=== PATIENT | female | born 1950 | race Caucasian/White ===

== ENCOUNTER 2016-07-29 11:20 | Emergency (ER) | payer MEDICARE, OTHER ==
[~2016-07-29 11:20] MED LIST: ACET50TAOT PO; ALEV220T22 PO; ALLE25CA OR; AMIT10TA2 OR; ANAF25CA PO; ANAFRANIL OR; CALC600T57 PO; CO Q-10 OR; COLA100C PO; DHEA OR; ESTRACE CREAM TOP; ESTRACE PV; FISH100049 PO; FISHCAP OR; FLAG500T PO; KELP150T PO; KLON OR; KLON0.5T OR; LEVA500T PO; LIPI10TA PO; LUNE3TAB48 PO; MAGN400T5 PO; MAGN500T2 OR; MIRA33504 PO; MULTIVIT OR; MYLI40DR PO; NEUR100C OR; NEUR300C PO; OMEP40CA2 PO; RELP40TA PO; REST0.05 OU; RESTASIS OU; TRAM50TA2 PO; TREXIMET OR; VITA200038 PO; VITMTA PO; VIVE0.03 TD; VIVELLE DOT TOP
[2016-07-29] MEDS ORDERED: PERCOCET 5MG/325MG TAB As Ordered ONE (12:32)
[2016-07-29] MEDS ORDERED: hydroCHLOROthiazide 25 MG TAB As Ordered ONE (14:06)
--- NOTE | 2016-07-29 14:15 | EDDOCDS ---
Nurse's Notes [facility] Name: Henrietta Tobias Age: 66 yrs Sex: Female : 1950 Arrival Date: 07/29/2016 Time: 11:20 Bed PR Private MD: Malka Rhodes A Diagnosis: Low back pain;Essential (primary) hypertension Presentation: 07/29 11:28 Presenting complaint: Patient states: Scheduled for laminectomy in August. Has been [facility] on Tramadol and Tylenol which is not helping with pain. Told by MD to come to ED to get some pain control and has appointment tomorrow. Adult Sepsis Screening: The patient does not have new or worsening altered mentation. Patient's respiratory rate is less than 22. Systolic blood pressure is greater than 100. Patient has a qSOFA score of 0- Negative Sepsis Screen. Suicide/Homicide risk assessment- the patient denies having any suicidal and/or homicidal ideations and does not present with any other emotional, behavioral or mental health complaints. Status: Patient is not a guest services attendant or dependent. Transition of care: patient was not received from another setting of care. 11:28 Acuity: ROSSI Level 4 [facility] 11:28 Method Of Arrival: Wheelchair [facility] Triage Assessment: 11:32 General: Appears uncomfortable, Behavior is cooperative. Pain: Location: right mcp buttocks, right calf down to right foot Pain currently is 10 out of 10 on a pain scale. Neurological: No deficits noted. Respiratory: Airway is patent Respiratory effort is even, unlabored. Derm: Skin is pink, warm & dry. Musculoskeletal: Circulation, motion, and sensation intact. Historical: - Allergies: Bactrim (Hives); Contrast dye (Hives); Lidoderm (red bumps and bruises); Propranolol (Psoriasis); Voltaren (feet swell); - Home Meds: 1. calcium 600 & D 200 x2 daily 2. Fish Oil 4000 mg daily Oral 3. Kelp 225 mcg daily oral 4. Lipitor 10 mg Oral tab 1 tab once daily 5. Lunesta 3 mg Oral tab 1 tab once daily as needed 6. magnesium oxide 400 mg Oral tab 3 daily 7. Multivitamin Oral 1 tab daily 8. Neurontin 300 mg Oral cap 3-4 times per day 9. omeprazole 40 mg Oral cpDR 1 cap once daily 10. Relpax 40 mg oral tab 1 tab as needed as needed 11. restasis 0.08% ooone drop each eye twice daily 12. Vitamin D3 2,000 unit oral tab daily 13. tramadol 50 mg Oral tab 1 tab every 4-6 hours 14. Tylenol 325 mg Oral tab 1 tab every 4-6 hours - PMHx: Hypercholesterolemia; Migraine Headaches; GERD; dry eyes; Chronic Back pain; - PSHx: open heart surgery; Bunion Surgery; left leg surgery; suregry for migraines; Hysterectomy; Tubal ligation; Breast Reduction; - Social history: Smoking status: Patient states was never smoker of tobacco. No barriers to communication noted, The patient speaks fluent Polish. - Family history: Not pertinent. - : The pt / caregiver states he / she is not on anticoagulants. Home medication list is obtained from the patient. - Exposure Risk Screening:: None identified. Screenin:42 Screening information is obtained from the patient. Fall risk: No risks identified. mcp Assistance ADL's: requires no assistance with activities of daily living. Abuse/DV Screen: The patient / caregiver reports he/she is: not in a situation that causes fear, pain or injury. Nutritional screening: No deficits noted. Advance Directives: There is no active DNR order. home support is adequate. Assessment: 12:41 General: Appears uncomfortable, Behavior is cooperative. Pain: Location: right mcp buttocks, right calf down to right foot Pain currently is 9 out of 10 on a pain scale. Neurological: No deficits noted. Respiratory: Airway is patent Respiratory effort is even, unlabored. Derm: Skin is pink, warm & dry. Musculoskeletal: Circulation, motion, and sensation intact. 14:12 General: Appears in no apparent distress, comfortable, Behavior is cooperative. Pain:. mcp Neurological: No deficits noted. Respiratory: Airway is patent Respiratory effort is even, unlabored. Derm: Skin is pink, warm & dry. Musculoskeletal: Circulation, motion, and sensation intact. Vital Signs: 11:22 BP 185 / 89; Pulse 86; Resp 18; Temp 97.4(O); Pulse Ox 100% on R/A; Weight 61.23 kg elp (R); Height 5 ft. 2 in. (157.48 cm) (R); Pain 10/10; 13:28 Pain 2/10; mcp 13:33 BP 181 / 87; Pulse 70; Resp 18; Temp 96.9(T); Pulse Ox 96% on R/A; Pain 2/10; mcp 13:35 BP 181 / 92 LA Supine (man/); ar3 14:05 BP 179 / 89 Supine (man/); Pulse 67; Resp 16; Temp 97.3(T); Pulse Ox 96% on R/A; Pain ar3 4/10; 11:22 Body Mass Index 24.69 (61.23 kg, 157.48 cm) el Vitals: 11:22 Log In Time: July 29, 2016 at 11:20. [facility] ED Course: 11:22 Patient visited by Fang Carter PCA. elp 11:22 Malka Rhodes is Private Physician. elp 11:22 Patient moved to Waiting elp 11:23 Patient visited by Fang Carter PCA. elp 11:23 Patient moved to Pre RCE elp 11:29 Triage Initiated mcp 11:33 Patient visited by Cristiane Carbajal RN. [facility] 11:33 Patient moved to Triage 1 mcp 11:48 [facility] jk8 11:48 Pradip Yousif MD is Attending Physician. jk8 11:48 Patient visited by Chilango Monson PA-C. jk8 12:13 [facility] Payment Agreement was scanned into [employer] and attached to record. mm15 12:32 Patient moved to PR2 / 26 ar3 12:42 Patient visited by Cristiane Carbajal RN. mcp 12:42 The patient / caregiver is instructed regarding the plan of care and ED course. Patient mcp has correct armband on for positive identification. Bed in low position. Call light in reach. Adult w/ patient. 13:34 Patient visited by Cristiane Carbajal RN. mcp 13:36 Patient visited by Britta Griffith PCA. ar3 14:00 Jr Catalan is Referral Physician. jk8 14:06 Patient visited by Britta Griffith PCA. ar3 14:13 No IV's were initiated during this patient's visit. No procedures done that require mcp assistance. Administered Medications: 12:40 Drug: oxyCODONE-acetaminophen 2 tabs [oxycodone-acetaminophen 5 mg-325 mg tablet (2 mcp tabs)] Route: PO; 13:28 Follow up: Pain 2/10 Adult; Response: Pain is decreased [facility] 14:12 Drug: Hydrochlorothiazide 25 mg [hydrochlorothiazide 25 mg tablet (1 tabs)] Route: PO; [facility] Order Results: There are currently no results for this order. Outcome: 14:01 Discharge ordered by Provider. jk8 14:14 Discharge Assessment: patient administered narcotics - yes. Pt provided with safe [facility] discharge. The following High Risk Discharge criteria are identified: None. Discharged to home ambulatory, with significant other. Condition: stable. Discharge instructions given to patient, Instructed on discharge instructions, follow up and referral plans. medication usage, Demonstrated understanding of instructions, medications, Pt was receptive of discharge instructions/ teaching. Prescriptions given X 2. No special radiology studies were completed. Property sent home with patient. 14:14 Patient left the ED. [facility] Signatures: Cristiane Carbajal RN RN Britta Harley, SILICATOR SILICATOR ar3 Shanae Diaz mm15 Fang Carter, SILICATOR SILICATOR elp Chilango Monson PA-C PA-C jk8 MP
--- NOTE | 2016-07-29 14:15 | EDDOCDS ---
Physician Documentation [facility] Name: Henrietta Tobias Age: 66 yrs Sex: Female : 1950 Arrival Date: 07/29/2016 Time: 11:20 Bed PR Private MD: Malka Rhodes A Disposition: 07/29/16 14:01 Discharged to Home/Self Care. Impression: Low back pain, Essential (primary) hypertension. - Condition is Stable. - Prescriptions for Percocet 5- 325 mg Oral Tablet - take 1 tablet by ORAL route every 6 hours As needed MDD: 4 tabs; 20 tablet. Hydrochlorothiazide 25 mg Oral Tablet - take 1 tablet by ORAL route once daily .; 30 tablet. - Medication Reconciliation, Local Pharmacy Hours form. - Follow up: Emergency Department; When: As soon as possible; Reason: Worsening of conditions. Follow up: Jr Catalan; When: Today; Reason: as scheduled. Follow up: Private Physician; When: 4 - 5 days; Reason: Further diagnostic work-up, Recheck today's complaints. - Problem is chronic. - Symptoms have worsened. Historical: - Allergies: Bactrim (Hives); Contrast dye (Hives); Lidoderm (red bumps and bruises); Propranolol (Psoriasis); Voltaren (feet swell); - Home Meds: 1. calcium 600 & D 200 x2 daily 2. Fish Oil 4000 mg daily Oral 3. Kelp 225 mcg daily oral 4. Lipitor 10 mg Oral tab 1 tab once daily 5. Lunesta 3 mg Oral tab 1 tab once daily as needed 6. magnesium oxide 400 mg Oral tab 3 daily 7. Multivitamin Oral 1 tab daily 8. Neurontin 300 mg Oral cap 3-4 times per day 9. omeprazole 40 mg Oral cpDR 1 cap once daily 10. Relpax 40 mg oral tab 1 tab as needed as needed 11. restasis 0.08% ooone drop each eye twice daily 12. Vitamin D3 2,000 unit oral tab daily 13. tramadol 50 mg Oral tab 1 tab every 4-6 hours 14. Tylenol 325 mg Oral tab 1 tab every 4-6 hours - PMHx: Hypercholesterolemia; Migraine Headaches; GERD; dry eyes; Chronic Back pain; - PSHx: open heart surgery; Bunion Surgery; left leg surgery; suregry for migraines; Hysterectomy; Tubal ligation; Breast Reduction; - Social history: Smoking status: Patient states was never smoker of tobacco. No barriers to communication noted, The patient speaks fluent Italian. - Family history: Not pertinent. - : The pt / caregiver states he / she is not on anticoagulants. Home medication list is obtained from the patient. - Exposure Risk Screening:: None identified. Vital Signs: 07/29 11:22 BP 185 / 89; Pulse 86; Resp 18; Temp 97.4(O); Pulse Ox 100% on R/A; Weight 61.23 kg / elp 134.99 lbs (R); Height 5 ft. 2 in. (157.48 cm) (R); Pain 10/10; 13:28 Pain 2/10; mcp 13:33 BP 181 / 87; Pulse 70; Resp 18; Temp 96.9(T); Pulse Ox 96% on R/A; Pain 2/10; mcp 13:35 BP 181 / 92 LA Supine (man/); ar3 14:05 BP 179 / 89 Supine (man/); Pulse 67; Resp 16; Temp 97.3(T); Pulse Ox 96% on R/A; Pain ar3 4/10; 11:22 Body Mass Index 24.69 (61.23 kg, 157.48 cm) elp MDM: 12:04 Financial registration complete. mm15 12:13 [facility] Payment Agreement was scanned into [employer] and attached to record. mm15 12:30 oxyCODONE-acetaminophen 5 mg-325 mg 2 tabs PO once ordered. jk8 14:02 Hydrochlorothiazide 25 mg PO once ordered. jk8 Administered Medications: 12:40 Drug: oxyCODONE-acetaminophen 2 tabs [oxycodone-acetaminophen 5 mg-325 mg tablet (2 mcp tabs)] Route: PO; 13:28 Follow up: Pain 2/10 Adult; Response: Pain is decreased mcp 14:12 Drug: Hydrochlorothiazide 25 mg [hydrochlorothiazide 25 mg tablet (1 tabs)] Route: PO; mcp Signatures: Cirstiane Carbajal RN RN Shanae Nascimento mm15 Chilango Monson PA-C PA-C jk8 The chart was reviewed and I authenticate all verbal orders and agree with the evaluation and treatment provided.Attachments: 12:13 [facility] Payment Agreement mm15 MTDD
--- NOTE | 2016-07-31 15:15 | EDDOCDS ---
Nurse's Notes [facility] Name: Henrietta Tobias Age: 66 yrs Sex: Female : 1950 Arrival Date: 07/29/2016 Time: 11:20 Bed PR Private MD: Malka Rhodes A Diagnosis: Low back pain;Essential (primary) hypertension Presentation: 07/29 11:28 Presenting complaint: Patient states: Scheduled for laminectomy in August. Has been [facility] on Tramadol and Tylenol which is not helping with pain. Told by MD to come to ED to get some pain control and has appointment tomorrow. Adult Sepsis Screening: The patient does not have new or worsening altered mentation. Patient's respiratory rate is less than 22. Systolic blood pressure is greater than 100. Patient has a qSOFA score of 0- Negative Sepsis Screen. Suicide/Homicide risk assessment- the patient denies having any suicidal and/or homicidal ideations and does not present with any other emotional, behavioral or mental health complaints. 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 Transition of care: patient was not received from another setting of care. 11:28 Acuity: ROSSI Level 4 [facility] 11:28 Method Of Arrival: Wheelchair [facility] Triage Assessment: 11:32 General: Appears uncomfortable, Behavior is cooperative. Pain: Location: right mcp buttocks, right calf down to right foot Pain currently is 10 out of 10 on a pain scale. Neurological: No deficits noted. Respiratory: Airway is patent Respiratory effort is even, unlabored. Derm: Skin is pink, warm & dry. Musculoskeletal: Circulation, motion, and sensation intact. Historical: - Allergies: Bactrim (Hives); Contrast dye (Hives); Lidoderm (red bumps and bruises); Propranolol (Psoriasis); Voltaren (feet swell); - Home Meds: 1. calcium 600 & D 200 x2 daily 2. Fish Oil 4000 mg daily Oral 3. Kelp 225 mcg daily oral 4. Lipitor 10 mg Oral tab 1 tab once daily 5. Lunesta 3 mg Oral tab 1 tab once daily as needed 6. magnesium oxide 400 mg Oral tab 3 daily 7. Multivitamin Oral 1 tab daily 8. Neurontin 300 mg Oral cap 3-4 times per day 9. omeprazole 40 mg Oral cpDR 1 cap once daily 10. Relpax 40 mg oral tab 1 tab as needed as needed 11. restasis 0.08% ooone drop each eye twice daily 12. Vitamin D3 2,000 unit oral tab daily 13. tramadol 50 mg Oral tab 1 tab every 4-6 hours 14. Tylenol 325 mg Oral tab 1 tab every 4-6 hours - PMHx: Hypercholesterolemia; Migraine Headaches; GERD; dry eyes; Chronic Back pain; - PSHx: open heart surgery; Bunion Surgery; left leg surgery; suregry for migraines; Hysterectomy; Tubal ligation; Breast Reduction; - Social history: Smoking status: Patient states was never smoker of tobacco. No barriers to communication noted, The patient speaks fluent Indonesian. - Family history: Not pertinent. - : The pt / caregiver states he / she is not on anticoagulants. Home medication list is obtained from the patient. - Exposure Risk Screening:: None identified. Screenin:42 Screening information is obtained from the patient. Fall risk: No risks identified. mcp Assistance ADL's: requires no assistance with activities of daily living. Abuse/DV Screen: The patient / caregiver reports he/she is: not in a situation that causes fear, pain or injury. Nutritional screening: No deficits noted. Advance Directives: There is no active DNR order. home support is adequate. Assessment: 12:41 General: Appears uncomfortable, Behavior is cooperative. Pain: Location: right mcp buttocks, right calf down to right foot Pain currently is 9 out of 10 on a pain scale. Neurological: No deficits noted. Respiratory: Airway is patent Respiratory effort is even, unlabored. Derm: Skin is pink, warm & dry. Musculoskeletal: Circulation, motion, and sensation intact. 14:12 General: Appears in no apparent distress, comfortable, Behavior is cooperative. Pain:. mcp Neurological: No deficits noted. Respiratory: Airway is patent Respiratory effort is even, unlabored. Derm: Skin is pink, warm & dry. Musculoskeletal: Circulation, motion, and sensation intact. Vital Signs: 11:22 BP 185 / 89; Pulse 86; Resp 18; Temp 97.4(O); Pulse Ox 100% on R/A; Weight 61.23 kg elp (R); Height 5 ft. 2 in. (157.48 cm) (R); Pain 10/10; 13:28 Pain 2/10; mcp 13:33 BP 181 / 87; Pulse 70; Resp 18; Temp 96.9(T); Pulse Ox 96% on R/A; Pain 2/10; mcp 13:35 BP 181 / 92 LA Supine (man/); ar3 14:05 BP 179 / 89 Supine (man/); Pulse 67; Resp 16; Temp 97.3(T); Pulse Ox 96% on R/A; Pain ar3 4/10; 11:22 Body Mass Index 24.69 (61.23 kg, 157.48 cm) el Vitals: 11:22 Log In Time: July 29, 2016 at 11:20. [facility] ED Course: 11:22 Patient visited by Fang Carter PCA. elp 11:22 Malka Rhodes is Private Physician. elp 11:22 Patient moved to Waiting elp 11:23 Patient visited by Fang Carter PCA. elp 11:23 Patient moved to Pre RCE elp 11:29 Triage Initiated mcp 11:33 Patient visited by Cristiane Carbajal RN. [facility] 11:33 Patient moved to Triage 1 mcp 11:48 [facility]il[facility] Monson [facility] jk8 11:48 Pradip Yousif MD is Attending Physician. jk8 11:48 Patient visited by Chilango Monson PA-C. jk8 12:13 [facility] Payment Agreement was scanned into [employer] and attached to record. mm15 12:32 Patient moved to PR2 / 26 ar3 12:42 Patient visited by Cristiane Carbajal RN. mcp 12:42 The patient / caregiver is instructed regarding the plan of care and ED course. Patient mcp has correct armband on for positive identification. Bed in low position. Call light in reach. Adult w/ patient. 13:34 Patient visited by Cristiane Carbajal RN. mcp 13:36 Patient visited by Britta Griffith PCA. ar3 14:00 Jr Catalan is Referral Physician. jk8 14:06 Patient visited by Britta Griffith PCA. ar3 14:13 No IV's were initiated during this patient's visit. No procedures done that require mcp assistance. 21:57 T-Sheet-- Draft Copy was scanned into [employer] and attached to record. klr Administered Medications: 12:40 Drug: oxyCODONE-acetaminophen 2 tabs [oxycodone-acetaminophen 5 mg-325 mg tablet (2 mcp tabs)] Route: PO; 13:28 Follow up: Pain 2/10 Adult; Response: Pain is decreased [facility] 14:12 Drug: Hydrochlorothiazide 25 mg [hydrochlorothiazide 25 mg tablet (1 tabs)] Route: PO; [facility] Order Results: There are currently no results for this order. Outcome: 14:01 Discharge ordered by Provider. jk8 14:14 Discharge Assessment: patient administered narcotics - yes. Pt provided with safe [facility] discharge. The following High Risk Discharge criteria are identified: None. Discharged to home ambulatory, with significant other. Condition: stable. Discharge instructions given to patient, Instructed on discharge instructions, follow up and referral plans. medication usage, Demonstrated understanding of instructions, medications, Pt was receptive of discharge instructions/ teaching. Prescriptions given X 2. No special radiology studies were completed. Property sent home with patient. 14:14 Patient left the ED. [facility] Signatures: Cristiane Carbajal RN RN [facility] Britta Griffith, PROFESSOR OF RADIOLOGY PROFESSOR OF RADIOLOGY ar3 Shanae Diaz mm15 Fang Carter, PROFESSOR OF RADIOLOGY PROFESSOR OF RADIOLOGY elp Chilango Monson PA-C PA-C jk8 Lata Hunt Chart Complete MTDSherlyn
--- NOTE | 2016-07-31 15:15 | EDDOCDS ---
Physician Documentation [facility] Name: Henrietta Tobias Age: 66 yrs Sex: Female : 1950 Arrival Date: 07/29/2016 Time: 11:20 Bed PR Private MD: Malka Rhodes A Disposition: 07/29/16 14:01 Discharged to Home/Self Care. Impression: Low back pain, Essential (primary) hypertension. - Condition is Stable. - Prescriptions for Percocet 5- 325 mg Oral Tablet - take 1 tablet by ORAL route every 6 hours As needed MDD: 4 tabs; 20 tablet. Hydrochlorothiazide 25 mg Oral Tablet - take 1 tablet by ORAL route once daily .; 30 tablet. - Medication Reconciliation, Local Pharmacy Hours form. - Follow up: Emergency Department; When: As soon as possible; Reason: Worsening of conditions. Follow up: Jr Catalan; When: Today; Reason: as scheduled. Follow up: Private Physician; When: 4 - 5 days; Reason: Further diagnostic work-up, Recheck today's complaints. - Problem is chronic. - Symptoms have worsened. Historical: - Allergies: Bactrim (Hives); Contrast dye (Hives); Lidoderm (red bumps and bruises); Propranolol (Psoriasis); Voltaren (feet swell); - Home Meds: 1. calcium 600 & D 200 x2 daily 2. Fish Oil 4000 mg daily Oral 3. Kelp 225 mcg daily oral 4. Lipitor 10 mg Oral tab 1 tab once daily 5. Lunesta 3 mg Oral tab 1 tab once daily as needed 6. magnesium oxide 400 mg Oral tab 3 daily 7. Multivitamin Oral 1 tab daily 8. Neurontin 300 mg Oral cap 3-4 times per day 9. omeprazole 40 mg Oral cpDR 1 cap once daily 10. Relpax 40 mg oral tab 1 tab as needed as needed 11. restasis 0.08% ooone drop each eye twice daily 12. Vitamin D3 2,000 unit oral tab daily 13. tramadol 50 mg Oral tab 1 tab every 4-6 hours 14. Tylenol 325 mg Oral tab 1 tab every 4-6 hours - PMHx: Hypercholesterolemia; Migraine Headaches; GERD; dry eyes; Chronic Back pain; - PSHx: open heart surgery; Bunion Surgery; left leg surgery; suregry for migraines; Hysterectomy; Tubal ligation; Breast Reduction; - Social history: Smoking status: Patient states was never smoker of tobacco. No barriers to communication noted, The patient speaks fluent German. - Family history: Not pertinent. - : The pt / caregiver states he / she is not on anticoagulants. Home medication list is obtained from the patient. - Exposure Risk Screening:: None identified. Vital Signs: 07/29 11:22 BP 185 / 89; Pulse 86; Resp 18; Temp 97.4(O); Pulse Ox 100% on R/A; Weight 61.23 kg / elp 134.99 lbs (R); Height 5 ft. 2 in. (157.48 cm) (R); Pain 10/10; 13:28 Pain 2/10; mcp 13:33 BP 181 / 87; Pulse 70; Resp 18; Temp 96.9(T); Pulse Ox 96% on R/A; Pain 2/10; mcp 13:35 BP 181 / 92 LA Supine (man/); ar3 14:05 BP 179 / 89 Supine (man/); Pulse 67; Resp 16; Temp 97.3(T); Pulse Ox 96% on R/A; Pain ar3 4/10; 11:22 Body Mass Index 24.69 (61.23 kg, 157.48 cm) elp MDM: 12:04 Financial registration complete. mm15 12:13 [facility] Payment Agreement was scanned into [employer] and attached to record. mm15 12:30 oxyCODONE-acetaminophen 5 mg-325 mg 2 tabs PO once ordered. jk8 14:02 Hydrochlorothiazide 25 mg PO once ordered. jk8 21:57 T-Sheet-- Draft Copy was scanned into [employer] and attached to record. klr Administered Medications: 12:40 Drug: oxyCODONE-acetaminophen 2 tabs [oxycodone-acetaminophen 5 mg-325 mg tablet (2 mcp tabs)] Route: PO; 13:28 Follow up: Pain 2/10 Adult; Response: Pain is decreased mcp 14:12 Drug: Hydrochlorothiazide 25 mg [hydrochlorothiazide 25 mg tablet (1 tabs)] Route: PO; [facility] Signatures: Cristiane Carbajal RN RN mcp McGrath, Marlynn mm15 Chilango Monson PA-C PA-C jk8 Lata Hunt The chart was reviewed and I authenticate all verbal orders and agree with the evaluation and treatment provided.Attachments: 12:13 [facility] Payment Agreement mm15 21:57 T-Sheet-- Draft Copy kelir Chart Complete MTDD
--- NOTE | 2016-07-31 15:15 | EDDOCDS ---
Physician Documentation [facility] Name: Henrietta Tobias Age: 66 yrs Sex: Female : 1950 Arrival Date: 07/29/2016 Time: 11:20 Bed PR Private MD: Malka Rhodes A Disposition: 07/29/16 14:01 Discharged to Home/Self Care. Impression: Low back pain, Essential (primary) hypertension. - Condition is Stable. - Prescriptions for Percocet 5- 325 mg Oral Tablet - take 1 tablet by ORAL route every 6 hours As needed MDD: 4 tabs; 20 tablet. Hydrochlorothiazide 25 mg Oral Tablet - take 1 tablet by ORAL route once daily .; 30 tablet. - Medication Reconciliation, Local Pharmacy Hours form. - Follow up: Emergency Department; When: As soon as possible; Reason: Worsening of conditions. Follow up: Jr Catalan; When: Today; Reason: as scheduled. Follow up: Private Physician; When: 4 - 5 days; Reason: Further diagnostic work-up, Recheck today's complaints. - Problem is chronic. - Symptoms have worsened. Historical: - Allergies: Bactrim (Hives); Contrast dye (Hives); Lidoderm (red bumps and bruises); Propranolol (Psoriasis); Voltaren (feet swell); - Home Meds: 1. calcium 600 & D 200 x2 daily 2. Fish Oil 4000 mg daily Oral 3. Kelp 225 mcg daily oral 4. Lipitor 10 mg Oral tab 1 tab once daily 5. Lunesta 3 mg Oral tab 1 tab once daily as needed 6. magnesium oxide 400 mg Oral tab 3 daily 7. Multivitamin Oral 1 tab daily 8. Neurontin 300 mg Oral cap 3-4 times per day 9. omeprazole 40 mg Oral cpDR 1 cap once daily 10. Relpax 40 mg oral tab 1 tab as needed as needed 11. restasis 0.08% ooone drop each eye twice daily 12. Vitamin D3 2,000 unit oral tab daily 13. tramadol 50 mg Oral tab 1 tab every 4-6 hours 14. Tylenol 325 mg Oral tab 1 tab every 4-6 hours - PMHx: Hypercholesterolemia; Migraine Headaches; GERD; dry eyes; Chronic Back pain; - PSHx: open heart surgery; Bunion Surgery; left leg surgery; suregry for migraines; Hysterectomy; Tubal ligation; Breast Reduction; - Social history: Smoking status: Patient states was never smoker of tobacco. No barriers to communication noted, The patient speaks fluent Nepali. - Family history: Not pertinent. - : The pt / caregiver states he / she is not on anticoagulants. Home medication list is obtained from the patient. - Exposure Risk Screening:: None identified. Vital Signs: 07/29 11:22 BP 185 / 89; Pulse 86; Resp 18; Temp 97.4(O); Pulse Ox 100% on R/A; Weight 61.23 kg / elp 134.99 lbs (R); Height 5 ft. 2 in. (157.48 cm) (R); Pain 10/10; 13:28 Pain 2/10; mcp 13:33 BP 181 / 87; Pulse 70; Resp 18; Temp 96.9(T); Pulse Ox 96% on R/A; Pain 2/10; mcp 13:35 BP 181 / 92 LA Supine (man/); ar3 14:05 BP 179 / 89 Supine (man/); Pulse 67; Resp 16; Temp 97.3(T); Pulse Ox 96% on R/A; Pain ar3 4/10; 11:22 Body Mass Index 24.69 (61.23 kg, 157.48 cm) elp MDM: 12:04 Financial registration complete. mm15 12:13 [facility] Payment Agreement was scanned into [employer] and attached to record. mm15 12:30 oxyCODONE-acetaminophen 5 mg-325 mg 2 tabs PO once ordered. jk8 14:02 Hydrochlorothiazide 25 mg PO once ordered. jk8 21:57 T-Sheet-- Draft Copy was scanned into [employer] and attached to record. klr Administered Medications: 12:40 Drug: oxyCODONE-acetaminophen 2 tabs [oxycodone-acetaminophen 5 mg-325 mg tablet (2 mcp tabs)] Route: PO; 13:28 Follow up: Pain 2/10 Adult; Response: Pain is decreased mcp 14:12 Drug: Hydrochlorothiazide 25 mg [hydrochlorothiazide 25 mg tablet (1 tabs)] Route: PO; [facility] Signatures: Cristiane Carbajal RN RN mcp McGrath, Marlynn mm15 Chilango Monson PA-C PA-C jk8 Lata Hunt The chart was reviewed and I authenticate all verbal orders and agree with the evaluation and treatment provided.Attachments: 12:13 [facility] Payment Agreement mm15 21:57 T-Sheet-- Draft Copy kelir Chart Complete MTDD
== END 2016-07-29 14:14 | disposition home or self-care (01) ==
LOC: M ED 11:20
DX: M54.9 Dorsalgia, unspecified (principal); E78.00 Pure hypercholesterolemia, unspecified; G43.909 Migraine, unspecified, not intractable, without status migrainosus; K21.9 Gastro-esophageal reflux disease without esophagitis; H04.129 Dry eye syndrome of unspecified lacrimal gland; Z79.899 Other long term (current) drug therapy; Z88.2 Allergy status to sulfonamides; Z91.041 Radiographic dye allergy status; Z88.8 Allergy status to other drugs, medicaments and biological substances

== ENCOUNTER → 2016-08-23 | Outpatient (REF) | payer MEDICARE, OTHER | LOC: M LAB REF 09:12 | PROVIDERS: ATTEND Physician Assistant | DX: R19.7 Diarrhea, unspecified (principal) ==

== ENCOUNTER → 2016-08-23 | Outpatient (REF) | payer MEDICARE, OTHER | LOC: M LAB REF 09:51 | PROVIDERS: ATTEND Family Medicine | DX: R19.7 Diarrhea, unspecified (principal) ==

== ENCOUNTER → 2016-09-21 | Outpatient (REF) | payer MEDICARE, OTHER ==
[2016-09-21 20:14] LABS: ALBUMIN/GLOBULIN RATIO 1.21 (1.00-1.93); BILIRUBIN,DIRECT 0.1 MG/DL (0.0-0.2); BILIRUBIN,TOTAL 0.4 MG/DL (0.2-1.0); TOTAL PROTEIN 7.3 GM/DL (6.4-8.2)
== END ==
LOC: M LABDRAW1 15:47
PROVIDERS: ATTEND Family Medicine
DX: R94.5 Abnormal results of liver function studies (principal)

== ENCOUNTER → 2016-12-20 | Outpatient (REF) | payer MEDICARE, OTHER ==
[~2016-12-20] MED LIST changes: -COLA100C PO; +COLA100C3 PO
[2016-12-20 13:01] LABS: BASO % 0.3 % (0.0-1.0); EOS # 0.2 K/mm3 (0.0-0.50); EOS % 4.7 % (0.0-3.0); LARGE UNSTAINED CELL # 0.1 K/mm3 (0.0-0.4); LARGE UNSTAINED CELL % 2.4 % (0.0-4.0); LYMPH # 2.4 K/mm3 (1.5-4.5); LYMPH % 44.2 % (24.0-44.0); MEAN CORPUSCULAR HEMOGLOBIN 27.7 pg (27.0-33.0); MEAN CORPUSCULAR HGB CONC 32.9 g/dl (32.0-36.5); MEAN CORPUSCULAR VOLUME 84.2 fl (80.0-96.0); MONO # 0.4 K/mm3 (0.0-0.8); MONO % 7.1 % (0.0-5.0); NEUTROPHILS # 2.1 K/mm3 (1.8-7.7); NEUTROPHILS % 41.3 % (36.0-66.0); PLATELET COUNT, AUTOMATED 273 k/mm3 (150-450); RED CELL DISTRIBUTION WIDTH 13.2 % (11.5-14.5); WHITE BLOOD COUNT 5.1 K/mm3 (4.0-10.0)
[2016-12-20 13:24] LABS: BILIRUBIN,TOTAL 0.4 MG/DL (0.2-1.0); CALCIUM LEVEL 10.1 MG/DL (8.8-10.2); CREATININE FOR GFR 1.2 MG/DL (0.55-1.02); GLOMERULAR FILTRATION RATE 47.8 (>45); POTASSIUM SERUM 4.4 MEQ/L (3.5-5.1)
[2016-12-20 13:25] LABS: ALBUMIN 4.2 GM/DL (3.2-5.2); ALBUMIN/GLOBULIN RATIO 1.24 (1.00-1.93); TOTAL PROTEIN 7.6 GM/DL (6.4-8.2)
== END ==
LOC: M LABDRWAD 12:19
PROVIDERS: ATTEND Family Medicine
DX: E78.2 Mixed hyperlipidemia (principal)

== ENCOUNTER → 2017-03-28 | Outpatient (REF) | payer MEDICARE, OTHER ==
[~2017-03-28] MED LIST changes: -COLA100C3 PO; +COLA100C5 PO; +LEVA1TAB2 PO; -LEVA500T PO; +LUNE3TAB36 PO; -LUNE3TAB48 PO
== END ==
LOC: M LAB REF 15:16
PROVIDERS: ATTEND Physician Assistant
DX: N39.0 Urinary tract infection, site not specified (principal)

== ENCOUNTER → 2017-06-26 | Outpatient (CLI) | payer MEDICARE, OTHER ==
--- NOTE | 2017-06-26 12:17 | REPMRS ---
Patient History The patient states she had a clinical breast exam in 06/2017. Patient is postmenopausal. Family history of prostate cancer in father at age 50 or over. Reductions of both breasts, July 2009. Took estrogen for 14 years 9 months. Digital Woman Screen Mammo: June 26, 2017 - Exam #: [id number] Bilateral CC and MLO view(s) were taken. Technologist: Mervat Gutierrez, Technologist Prior study comparison: June 25, 2016, digital woman screen mammo performed at [facility]. June 27, 2015, digital woman screen mammo performed at [facility]. FINDINGS: There are scattered fibroglandular densities. There has been no change in the appearance of the mammogram from the prior studies. There is a mild amount of residual fibroglandular tissue which is fairly symmetric. There is no interval development of dominant mass, architectural distortion, or clustered microcalcification suggestive of malignancy. ASSESSMENT: BI-RADS/ACR category 1 mammogram. Negative. Recommendation Routine screening mammogram in 1 year (for women over age 40). This mammogram was interpreted with the aid of an FDA-approved computer-aided dectection system. Electronically Signed By: Hakan Serrano MD 06/26/17 2625
== END ==
LOC: M WHC 10:07
PROVIDERS: ATTEND Nurse Practitioner Family
DX: Z12.31 Encounter for screening mammogram for malignant neoplasm of breast (principal); Z78.0 Asymptomatic menopausal state; Z92.23 Personal history of estrogen therapy; Z92.89 Personal history of other medical treatment

== ENCOUNTER → 2017-07-31 | Outpatient (REF) | payer MEDICARE, OTHER ==
[2017-07-31 12:46] LABS: BASO % 0.4 % (0.0-1.0); EOS % 0.2 % (0.0-3.0); HEMATOCRIT 45.1 % (36.0-47.0); HEMOGLOBIN 14.7 g/dl (12.0-16.0); IMMATURE GRANULOCYTE % 0.2 % (0-0); LYMPH % 38.4 % (24.0-44.0); MEAN CORPUSCULAR HEMOGLOBIN 28.4 pg (27.0-33.0); MEAN CORPUSCULAR HGB CONC 32.6 g/dl (32.0-36.5); MEAN CORPUSCULAR VOLUME 87.2 fl (80.0-96.0); MONO # 0.5 10^3/uL (0.0-0.8); MONO % 8.8 % (0.0-5.0); NEUTROPHILS # 2.7 10^3/uL (1.8-7.7); PLATELET COUNT, AUTOMATED 254 10^3/uL (150-450); RED BLOOD COUNT 5.17 10^6/uL (4.00-5.40); RED CELL DISTRIBUTION WIDTH 12.9 % (11.5-14.5); WHITE BLOOD COUNT 5.1 10^3/uL (4.0-10.0)
[2017-07-31 12:52] LABS: ALBUMIN 4.3 GM/DL (3.2-5.2); ALKALINE PHOSPHATASE 113 U/L (45-117); ALT/SGPT 46 U/L (12-78); ANION GAP 7 MEQ/L (8-16); AST/SGOT 41 U/L (7-37); BILIRUBIN,TOTAL 0.5 MG/DL (0.2-1.0); BLOOD UREA NITROGEN 20 MG/DL (7-18); CALCIUM LEVEL 9.9 MG/DL (8.8-10.2); CARBON DIOXIDE LEVEL 29 MEQ/L (21-32); CHLORIDE LEVEL 106 MEQ/L (98-107); CREATININE FOR GFR 1.16 MG/DL (0.55-1.02); GLOMERULAR FILTRATION RATE 49.6 (>45); GLUCOSE, FASTING 93 MG/DL (80-110); POTASSIUM SERUM 4.4 MEQ/L (3.5-5.1); SODIUM LEVEL 142 MEQ/L (136-145); TOTAL PROTEIN 7.6 GM/DL (6.4-8.2)
== END ==
LOC: M LABDRWAD 12:30
DX: Z01.818 Encounter for other preprocedural examination (principal); E08.35 Diabetes mellitus due to underlying condition with proliferative diabetic retinopathy
CPT/HCPCS: 80053

== ENCOUNTER 2017-08-14 07:19 | Day surgery (SDC) | payer MEDICARE, OTHER ==
[2017-08-14] MEDS: LR 1,000 ML IV ×2 (08:22)
[2017-08-14] MEDS ORDERED: fentaNYL 100 MCG/2 ML INJECTION (J3010) As Ordered ×2 (08:32)
[2017-08-14] MEDS ORDERED: KETOROLAC 60 MG/2 ML VIAL (J1885) As Ordered ×2 (08:32)
[2017-08-14] MEDS ORDERED: LIDOCAINE 2% INJ 100 MG/5 ML SDV (FOR ANES.) As Ordered ×2 (08:32)
[2017-08-14] MEDS ORDERED: dexameTHASONE 4 MG/ML 1ML VIAL (J1100) As Ordered ×2 (08:32)
[2017-08-14] MEDS ORDERED: MIDAZOLAM INJ 2 MG/2 ML VIAL (J2250) As Ordered ×2 (08:32)
[2017-08-14] MEDS ORDERED: PROPOFOL 200 MG/20 ML VIAL As Ordered ×2 (08:32)
[2017-08-14] MEDS ORDERED: ONDANSETRON 4MG/2ML VIAL (J2405) As Ordered ×2 (08:32)
[2017-08-14] MEDS: BUPIVACAINE HCL 0.5% 30 ML VIAL As Ordered ×2 (09:44)
[2017-08-14] MEDS: LIDOCAINE 2% MDV 20 ML VIAL As Ordered ×2 (09:44)
[2017-08-14] MEDS: BACITRACIN PWD 50,000 UNITS VIAL As Ordered ×2 (10:04)
[2017-08-14] MEDS: NEOSPORIN GU IRRIG 20 ML VIAL As Ordered ×2 (10:04)
[2017-08-14] MEDS: dexameTHASONE 4 MG/ML 1ML VIAL (J1100) As Ordered ×2 (10:11)
[2017-08-14] MEDS ORDERED: LR 1,000 ML IV ×2 (10:45)
[2017-08-14] MEDS ORDERED: PERCOCET 5MG/325MG TAB PO ×2 (10:45)
[2017-08-14] MEDS ORDERED: ONDANSETRON 4MG/2ML VIAL (J2405) IV ×2 (10:45)
[2017-08-14] MEDS ORDERED: ACETAMINOPHEN TAB 650MG DOSE (2X325MG) PO ×2 (10:45)
[2017-08-14] MEDS ORDERED: fentaNYL 100 MCG/2 ML INJECTION (J3010) IV ×2 (10:45)
== END 2017-08-14 12:45 | disposition home or self-care (01) ==
LOC: M SDC 07:19
DX: G57.61 Lesion of plantar nerve, right lower limb (principal); E78.5 Hyperlipidemia, unspecified; R29.2 Abnormal reflex; K21.9 Gastro-esophageal reflux disease without esophagitis; M85.80 Other specified disorders of bone density and structure, unspecified site; F41.9 Anxiety disorder, unspecified; F32.9 Major depressive disorder, single episode, unspecified; F31.9 Bipolar disorder, unspecified; G43.009 Migraine without aura, not intractable, without status migrainosus; L60.2 Onychogryphosis; M51.16 Intervertebral disc disorders with radiculopathy, lumbar region; Z88.2 Allergy status to sulfonamides; Z88.4 Allergy status to anesthetic agent; Z88.8 Allergy status to other drugs, medicaments and biological substances; Z91.041 Radiographic dye allergy status; Z91.048 Other nonmedicinal substance allergy status; Z79.899 Other long term (current) drug therapy; Z90.710 Acquired absence of both cervix and uterus; Z78.0 Asymptomatic menopausal state
CPT/HCPCS: 64776

== ENCOUNTER 2017-09-11 06:35 | Day surgery (SDC) | payer MEDICARE, OTHER ==
[2017-09-11] MEDS: NS 500 ML IV (07:01)
[2017-09-11] MEDS ORDERED: LIDOCAINE 2% INJ 100 MG/5 ML SDV (FOR ANES.) As Ordered (07:02)
[2017-09-11] MEDS ORDERED: PROPOFOL 200 MG/20 ML VIAL As Ordered (07:02)
== END 2017-09-11 08:35 | disposition home or self-care (01) ==
LOC: M OPP 06:35
DX: Z12.11 Encounter for screening for malignant neoplasm of colon (principal); E78.5 Hyperlipidemia, unspecified; Z91.041 Radiographic dye allergy status; Z88.3 Allergy status to other anti-infective agents; Z88.2 Allergy status to sulfonamides; Z88.8 Allergy status to other drugs, medicaments and biological substances; Z79.899 Other long term (current) drug therapy
CPT/HCPCS: G0121

== ENCOUNTER → 2017-12-11 | Outpatient (REF) | payer MEDICARE, OTHER ==
[2017-12-12 11:46] LABS: ALBUMIN/GLOBULIN RATIO 1.25 (1.00-1.93); ALKALINE PHOSPHATASE 125 U/L (45-117); ALT/SGPT 63 U/L (12-78); ANION GAP 8 MEQ/L (8-16); AST/SGOT 53 U/L (7-37); BILIRUBIN,TOTAL 0.4 MG/DL (0.2-1.0); BLOOD UREA NITROGEN 20 MG/DL (7-18); CARBON DIOXIDE LEVEL 27 MEQ/L (21-32); CHLORIDE LEVEL 108 MEQ/L (98-107); CHOLESTEROL LEVEL 210 MG/DL (<200); CHOLESTEROL RISK RATIO 2.333 (<5); CREATININE FOR GFR 1.02 MG/DL (0.55-1.30); GLOMERULAR FILTRATION RATE 57.5 (>45); GLUCOSE, FASTING 98 MG/DL (70-100); HDL CHOLESTEROL 90 MG/DL (>40); LDL CHOLESTEROL 101.6 MG/DL (<100); NON-HDL-C 120 MG/DL; POTASSIUM SERUM 4.3 MEQ/L (3.5-5.1); SODIUM LEVEL 143 MEQ/L (136-145); TOTAL PROTEIN 7.2 GM/DL (6.4-8.2); TRIGLYCERIDES LEVEL 92 MG/DL (<150)
[2017-12-12 12:48] LABS: HEMOGLOBIN 14.2 g/dl (12.0-15.5); MEAN CORPUSCULAR HGB CONC 32.3 g/dl (32.0-36.5); MEAN CORPUSCULAR VOLUME 86.6 fl (80.0-96.0); PLATELET COUNT, AUTOMATED 233 10^3/uL (150-450); RED BLOOD COUNT 5.08 10^6/uL (4.00-5.40); RED CELL DISTRIBUTION WIDTH 13.7 % (11.5-14.5); WHITE BLOOD COUNT 4.1 10^3/uL (4.0-10.0)
== END ==
LOC: M LAB REF 09:00
DX: E78.5 Hyperlipidemia, unspecified (principal)
CPT/HCPCS: 80053

== ENCOUNTER → 2018-01-22 | Outpatient (REF) | payer MEDICARE, OTHER | LOC: M LAB REF 19:30 | DX: N39.0 Urinary tract infection, site not specified (principal) | CPT/HCPCS: 87186 ==

== ENCOUNTER → 2018-03-13 | Outpatient (REF) | payer MEDICARE, OTHER ==
[2018-03-13 18:01] LABS: APPEARANCE, URINE HAZY (CLEAR); BACTERIA, URINE AUTO 1+ (NEGATIVE); BILIRUBIN, URINE AUTO NEGATIVE (NEGATIVE); BLOOD, URINE BLOOD NEGATIVE (NEGATIVE); COLOR, URINE YELLOW (YELLOW); GLUCOSE, URINE (UA) AUTO NEGATIVE (NEGATIVE); KETONE, URINE AUTO NEGATIVE (NEGATIVE); LEUKOCYTE ESTERASE, URINE AUTO 3+ (NEGATIVE); MUCUS, URINE SMALL (NEGATIVE); NITRITE, URINE AUTO NEGATIVE (NEGATIVE); PROTEIN, URINE AUTO NEGATIVE (NEGATIVE); RBC, URINE AUTO 3 /HPF (0-3); SQUAMOUS EPITHELIAL CELL UR AU 5 /HPF (0-6); TRANSITIONAL EPITHELIAL AUTO 1 /HPF; UROBILINOGEN, URINE AUTO 0.2 mg/dL (0.0-2.0); WBC, URINE AUTO 43 /HPF (0-3)
== END ==
LOC: M SMT 17:17
DX: Z87.440 Personal history of urinary (tract) infections (principal)
CPT/HCPCS: 81001

== ENCOUNTER → 2018-03-27 | Outpatient (CLI) | payer MEDICARE, OTHER | LOC: M WHC 09:55 | DX: Z87.440 Personal history of urinary (tract) infections (principal) | CPT/HCPCS: 76857 ==

== ENCOUNTER → 2018-04-07 | Outpatient (REF) | payer MEDICARE, OTHER | LOC: M SMT 17:00 | DX: N39.0 Urinary tract infection, site not specified (principal) | CPT/HCPCS: 87086 ==

== ENCOUNTER → 2018-04-11 | Outpatient (REF) | payer MEDICARE, OTHER ==
[2018-04-11 18:59] LABS: AMORPHOUS SEDIMENT LARGE (NEGATIVE); APPEARANCE, URINE CLOUDY (CLEAR); BACTERIA, URINE AUTO 2+ (NEGATIVE); BILIRUBIN, URINE AUTO NEGATIVE (NEGATIVE); BLOOD, URINE BLOOD NEGATIVE (NEGATIVE); COLOR, URINE AMBER (YELLOW); GLUCOSE, URINE (UA) AUTO NEGATIVE (NEGATIVE); KETONE, URINE AUTO NEGATIVE (NEGATIVE); LEUKOCYTE ESTERASE, URINE AUTO 3+ (NEGATIVE); NITRITE, URINE AUTO NEGATIVE (NEGATIVE); PROTEIN, URINE AUTO 1+ mg/dL (NEGATIVE); RBC, URINE AUTO 53 /HPF (0-3); SQUAMOUS EPITHELIAL CELL UR AU 0 /HPF (0-6); UROBILINOGEN, URINE AUTO 0.2 mg/dL (0.0-2.0); WBC, URINE AUTO TNTC /HPF (0-3)
== END ==
LOC: M SMT 17:21
DX: N39.0 Urinary tract infection, site not specified (principal)
CPT/HCPCS: 81001

== ENCOUNTER → 2018-06-16 | Outpatient (CLI) | payer MEDICARE, OTHER | LOC: M WHC 11:09 | DX: Z01.419 Encounter for gynecological examination (general) (routine) without abnormal findings (principal); Z12.31 Encounter for screening mammogram for malignant neoplasm of breast (principal); Z92.89 Personal history of other medical treatment; Z92.23 Personal history of estrogen therapy; Z12.12 Encounter for screening for malignant neoplasm of rectum | CPT/HCPCS: 77067 ==

== ENCOUNTER → 2018-07-29 | Outpatient (REF) | payer MEDICARE, OTHER ==
[~2018-07-29] MED LIST changes: +ACET500T15 PO; -ACET50TAOT PO; +PREG50CA PO; +PROBCAP4 PO
[2018-07-29 20:15] LABS: HEMATOCRIT 47.9 % (36.0-47.0); HEMOGLOBIN 15.3 g/dl (12.0-15.5); MEAN CORPUSCULAR HEMOGLOBIN 27.3 pg (27.0-33.0); MEAN CORPUSCULAR HGB CONC 31.9 g/dl (32.0-36.5); MEAN CORPUSCULAR VOLUME 85.5 fl (80.0-96.0); PLATELET COUNT, AUTOMATED 255 10^3/uL (150-450); WHITE BLOOD COUNT 5.5 10^3/uL (4.0-10.0)
[2018-07-29 20:25] LABS: ALBUMIN 4.1 GM/DL (3.2-5.2); BILIRUBIN,TOTAL 0.3 MG/DL (0.2-1.0); CALCIUM LEVEL 9.7 MG/DL (8.8-10.2); CHOLESTEROL RISK RATIO 2.257 (<5); FREE T4 0.79 NG/DL (0.76-1.46); GLOMERULAR FILTRATION RATE 58.7 (>45); POTASSIUM SERUM 4.5 MEQ/L (3.5-5.1); THYROID STIMULATING HORMONE 1.57 uIU/ML (0.358-3.740); TOTAL PROTEIN 7.9 GM/DL (6.4-8.2)
== END ==
LOC: M SFHCADAM 12:03
PROVIDERS: ATTEND Family Medicine
DX: E78.5 Hyperlipidemia, unspecified (principal); M85.80 Other specified disorders of bone density and structure, unspecified site; N39.0 Urinary tract infection, site not specified
CPT/HCPCS: 80053; 80061; 82306; 84439; 84443; 85027; G0463

== ENCOUNTER → 2019-04-02 | Outpatient (CLI) | payer MEDICARE, OTHER ==
--- NOTE | 2019-04-02 17:22 | REP ---
RIGHT HIP, TWO VIEWS: There is no evidence of an acute fracture, dislocation or intrinsic bone disease. The hip joint is unremarkable in appearance. IMPRESSION: No fracture or dislocation. Electronically Signed by Hakan Serrano MD 04/02/2019 05:59 P
== END ==
LOC: M ADAMS 16:59
PROVIDERS: ATTEND Physician Assistant
DX: S70.01XA Contusion of right hip, initial encounter (principal); X58.XXXA Exposure to other specified factors, initial encounter; Y92.9 Unspecified place or not applicable

== ENCOUNTER → 2019-06-22 | Outpatient (CLI) | payer MEDICARE, OTHER ==
[~2019-06-22] MED LIST changes: -OMEP40CA2 PO; +OMEP40CA97 PO
--- NOTE | 2019-06-22 12:22 | REPMRS ---
Patient History The patient states she had a clinical breast exam in June 2019.Family history of prostate cancer at age 50 or over in father. Reductions of both breasts, July 2009. Took estrogen for 14 years 9 months. 3D TOMOSYNTHESIS WAS PERFORMED. The [facility] lifetime risk for breast cancer is 5.3%. Digital Woman Screen Mammo: June 22, 2019 - Exam #: [id number] Bilateral CC and MLO view(s) were taken. Technologist: Beatrice Puga, Technologist Prior study comparison: June 16, 2018, bilateral digital woman screen mammo performed at [facility]. June 26, 2017, digital woman screen mammo performed at [facility]. FINDINGS: There are scattered fibroglandular densities. There has been no change in the appearance of the mammogram from the prior studies. There is a mild amount of residual fibroglandular tissue which is fairly symmetric. There is no interval development of dominant mass, architectural distortion, or clustered microcalcification suggestive of malignancy. Assessment: BI-RADS/ACR category 1 mammogram. Negative Mammogram. Recommendation Routine screening mammogram in 1 year (for women over age 40). This mammogram was interpreted with the aid of an FDA-approved computer-aided dectection system. Electronically Signed By: Hakan Serrano MD 06/22/19 1473
== END ==
LOC: M WHC 11:01
PROVIDERS: ATTEND Nurse Practitioner Family
DX: Z12.31 Encounter for screening mammogram for malignant neoplasm of breast (principal); Z80.42 Family history of malignant neoplasm of prostate; Z92.23 Personal history of estrogen therapy
CPT/HCPCS: 77063; 77067; G0463

== ENCOUNTER → 2019-07-14 | Outpatient (REF) | payer MEDICARE, OTHER ==
[2019-07-14 17:46] LABS: APPEARANCE, URINE TURBID (CLEAR); BACTERIA, URINE AUTO NEGATIVE (NEGATIVE); BILIRUBIN, URINE AUTO NEGATIVE (NEGATIVE); BLOOD, URINE BLOOD NEGATIVE (NEGATIVE); CALCIUM OXALATE CRYSTALS SMALL; COLOR, URINE AMBER (YELLOW); GLUCOSE, URINE (UA) AUTO NEGATIVE (NEGATIVE); KETONE, URINE AUTO TRACE mg/dL (NEGATIVE); LEUKOCYTE ESTERASE, URINE AUTO NEGATIVE (NEGATIVE); MUCUS, URINE LARGE (NEGATIVE); NITRITE, URINE AUTO NEGATIVE (NEGATIVE); PROTEIN, URINE AUTO 1+ mg/dL (NEGATIVE); RBC, URINE AUTO 2 /HPF (0-3); SQUAMOUS EPITHELIAL CELL UR AU 2 /HPF (0-6); UROBILINOGEN, URINE AUTO 0.2 mg/dL (0.0-2.0); WBC, URINE AUTO 2 /HPF (0-3)
== END ==
LOC: M SMT 15:31
PROVIDERS: ATTEND Nurse Practitioner Women's Health
DX: N39.41 Urge incontinence (principal)
CPT/HCPCS: 51798; 81001; 87086; G0463

== ENCOUNTER → 2019-07-21 | Outpatient (REF) | payer MEDICARE, OTHER ==
[2019-07-21 18:03] LABS: CALCIUM LEVEL 9.3 MG/DL (8.8-10.2)
[2019-07-21 18:24] LABS: TOTAL 25(OH) VITAMIN D 95.9 NG/ML (30.0-100.0)
== END ==
LOC: M LABDRWAD 17:34
PROVIDERS: ATTEND Internal Medicine Endocrinology, Diabetes & Metabolism
DX: M81.0 Age-related osteoporosis without current pathological fracture (principal)

== ENCOUNTER 2019-09-08 15:25 | Outpatient (RCR) | payer MEDICARE, OTHER | END 2019-09-12 | LOC: M PT 15:25 | PROVIDERS: ATTEND Nurse Practitioner Women's Health | DX: R32 Unspecified urinary incontinence (principal) ==

== ENCOUNTER 2019-10-08 14:50 | Outpatient (RCR) | payer MEDICARE, OTHER | END 2019-10-13 | LOC: M PT 14:50 | PROVIDERS: ATTEND Nurse Practitioner Women's Health | DX: Z51.89 Encounter for other specified aftercare (principal); R32 Unspecified urinary incontinence ==

== ENCOUNTER 2019-10-15 12:57 | Outpatient (RCR) | payer MEDICARE, OTHER | END 2019-11-12 | LOC: M PT 12:57 | PROVIDERS: ATTEND Nurse Practitioner Women's Health | DX: R32 Unspecified urinary incontinence (principal) ==

== ENCOUNTER → 2019-11-10 | Outpatient (REF) | payer MEDICARE, OTHER ==
[2019-11-10 12:45] LABS: HEMATOCRIT 44.1 % (36.0-47.0); HEMOGLOBIN 14.2 g/dl (12.0-15.5); MEAN CORPUSCULAR HEMOGLOBIN 26.9 pg (27.0-33.0); MEAN CORPUSCULAR HGB CONC 32.2 g/dl (32.0-36.5); MEAN CORPUSCULAR VOLUME 83.5 fl (80.0-96.0); PLATELET COUNT, AUTOMATED 264 10^3/uL (150-450); RED BLOOD COUNT 5.28 10^6/uL (4.00-5.40); WHITE BLOOD COUNT 4.5 10^3/uL (4.0-10.0)
[2019-11-10 13:02] LABS: ALBUMIN 3.9 GM/DL (3.2-5.2); BILIRUBIN,TOTAL 0.5 MG/DL (0.2-1.0); CALCIUM LEVEL 10.3 MG/DL (8.8-10.2); CHOLESTEROL RISK RATIO 2.073 (<5); CREATININE FOR GFR 1.04 MG/DL (0.55-1.30); FREE T4 0.84 NG/DL (0.76-1.46); GLOMERULAR FILTRATION RATE 55.9 (>45); POTASSIUM SERUM 4.8 MEQ/L (3.5-5.1); THYROID STIMULATING HORMONE 1.57 uIU/ML (0.358-3.740); TOTAL PROTEIN 7.2 GM/DL (6.4-8.2)
== END ==
LOC: M SFHCADAM 10:09
PROVIDERS: ATTEND Family Medicine
DX: G43.909 Migraine, unspecified, not intractable, without status migrainosus (principal); E78.5 Hyperlipidemia, unspecified
CPT/HCPCS: 80053; 80061; 84439; 84443; 85027; G0463

== ENCOUNTER → 2020-01-28 | Outpatient (REF) | payer MEDICARE, OTHER | LOC: M LAB REF 12:43 → M LABDRWAD 12:43 | PROVIDERS: ATTEND Internal Medicine Endocrinology, Diabetes & Metabolism | DX: M81.0 Age-related osteoporosis without current pathological fracture (principal) ==

== ENCOUNTER → 2020-02-23 | Outpatient (CLI) | payer MEDICARE, OTHER ==
[2020-03-27 11:19] LABS: APPEARANCE, URINE HAZY (CLEAR); BACTERIA, URINE AUTO NEGATIVE (NEGATIVE); BILIRUBIN, URINE AUTO NEGATIVE (NEGATIVE); BLOOD, URINE BLOOD NEGATIVE (NEGATIVE); COLOR, URINE YELLOW (YELLOW); GLUCOSE, URINE (UA) AUTO NEGATIVE (NEGATIVE); KETONE, URINE AUTO NEGATIVE (NEGATIVE); LEUKOCYTE ESTERASE, URINE AUTO NEGATIVE (NEGATIVE); NITRITE, URINE AUTO NEGATIVE (NEGATIVE); PROTEIN, URINE AUTO NEGATIVE (NEGATIVE); RBC, URINE AUTO 2 /HPF (0-3); SPECIFIC GRAVITY URINE AUTO 1.013 (1.002-1.035); SQUAMOUS EPITHELIAL CELL UR AU 0 /HPF (0-6); UROBILINOGEN, URINE AUTO 0.2 mg/dL (0.0-2.0); WBC, URINE AUTO 0 /HPF (0-3)
--- NOTE | 2020-04-01 12:05 | ECGEPIP ---
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
--- NOTE | 2020-04-08 14:06 | REP ---
CHEST X-RAY: 2-VIEWS COMPARISON: 09/29/15 HISTORY: Urinary incontinence. FINDINGS: 2-views of the chest are performed. There is no acute infiltrate or pulmonary edema. The lungs are clear. The heart is normal in size. Mediastinal silhouette is unremarkable and unchanged. There are sternal wires present. IMPRESSION: No active pulmonary disease. MTDD
== END ==
LOC: M RAD 09:03
PROVIDERS: ATTEND Urology
DX: R39.81 Functional urinary incontinence (principal)

== ENCOUNTER 2020-02-29 12:30 | Day surgery (SDC) | payer MEDICARE, OTHER ==
[2020-02-29] MEDS ORDERED: ceFAZolin 2 GM/D5W 50 ML IV BAG (J0690 PER 500MG) As Ordered ONE (12:51)
[2020-02-29] MEDS ORDERED: ceFAZolin 2 GM/D5W 50 ML IV BAG (J0690 PER 500MG) ONE (12:51)
[2020-02-29] MEDS ORDERED: ONDANSETRON 4MG/2ML VIAL As Ordered ONE (16:30)
[2020-02-29] MEDS ORDERED: LIDOCAINE 2% 100MG/5ML SDV (FOR ANES.) As Ordered ONE (16:30)
[2020-02-29] MEDS ORDERED: fentaNYL 100 MCG/2 ML INJECTION (J3010) As Ordered ONE (16:30)
[2020-02-29] MEDS ORDERED: MIDAZOLAM INJ 2MG/2ML VIAL (J2250 PER 1MG) As Ordered ONE (16:30)
[2020-02-29] MEDS ORDERED: propofoL 200 MG/20 ML VIAL As Ordered ONE (16:30)
--- NOTE | 2020-04-21 11:00 | RO ---
DATE OF OPERATION: 02/29/2020 PREOPERATIVE DIAGNOSIS: Stress incontinence. POSTOPERATIVE DIAGNOSIS: Stress incontinence. PROCEDURE: Macroplastique implants. SURGEON: Dr. Marshal Valente. ANESTHESIA: MAC. INDICATIONS FOR OPERATION: This is a 69-year-old white female with stress incontinence found in the office to have a type III urethra and was therefore, brought to the operating room for implant. DESCRIPTION OF OPERATION: The patient was anesthetized with MAC anesthesia after being placed on the cysto table. She was then placed in the lithotomy position, prepped with antibiotic solution, and draped in an aseptic manner. Timeout was then performed. A 22-Hungarian cystoscope was then inserted into the meatus to the bladder under direct vision of a 30 lens. The bladder was then drained and then partially filled. A Macroplastique needle was then placed and Macroplastique was injected at the 10:00 o'clock, 2:00 o'clock, and 6:00 o'clock positions with one syringe full each. The bladder was then drained. The scope was removed. The patient was awakened and sent to the recovery area in stable condition having tolerated the procedure well. MP
== END 2020-02-29 17:25 | disposition home or self-care (01) ==
LOC: M SDC 12:30
PROVIDERS: ATTEND Urology
DX: N39.3 Stress incontinence (female) (male) (principal); N36.42 Intrinsic sphincter deficiency (ISD); F31.9 Bipolar disorder, unspecified; G43.909 Migraine, unspecified, not intractable, without status migrainosus; Z79.899 Other long term (current) drug therapy; Z88.2 Allergy status to sulfonamides; Z88.8 Allergy status to other drugs, medicaments and biological substances
CPT/HCPCS: 51715; J0690; J2250; J2405; J3010; L8606

== ENCOUNTER → 2020-06-23 | Outpatient (CLI) | payer MEDICARE, OTHER ==
--- NOTE | 2020-06-23 13:04 | REPMRS ---
Patient History The patient states she had a clinical breast exam in 2019. Family history of prostate cancer at age 50 or over in father. Reductions of both breasts, July 2009. Took estrogen for 14 years 9 months. Digital Woman Screen Mammo: June 23, 2020 - Exam #: [id number] Bilateral CC and MLO view(s) were taken. Technologist: Britta Rapp, Technologist Prior study comparison: June 22, 2019, bilateral digital woman screen mammo performed at [facility]. June 16, 2018, bilateral digital woman screen mammo performed at [facility]. June 26, 2017, digital woman screen mammo performed at [facility]. FINDINGS: There are scattered fibroglandular densities. The Volpara volumetric breast density category is:B. There has been no change in the appearance of the mammogram from the prior studies. There is a mild amount of scattered fibroglandular density which is fairly symmetric. There is no interval development of dominant mass, architectural distortion, or grouped microcalcification suggestive of malignancy. 3-D tomosynthesis shows no additional findings. Assessment: BI-RADS/ACR category 1 mammogram. Negative Mammogram. Recommendation Routine screening mammogram of both breasts in 1 year (for women over age 40). This patient's [facility] Lifetime Breast Cancer Risk is estimated at 5.0 %. This mammogram was interpreted with the aid of an FDA-approved computer-aided dectection system. Electronically Signed By: Irvin Jimenez MD 06/23/20 [id number]
== END ==
LOC: M WHC 11:31
PROVIDERS: ATTEND Nurse Practitioner Family
DX: Z12.31 Encounter for screening mammogram for malignant neoplasm of breast (principal); Z80.42 Family history of malignant neoplasm of prostate; Z98.890 Other specified postprocedural states; Z92.23 Personal history of estrogen therapy
CPT/HCPCS: 77063; 77067; G0463

== ENCOUNTER → 2020-07-22 | Outpatient (CLI) | payer SELFPAY | LOC: M LABSMTC 14:01 | PROVIDERS: ATTEND Pediatrics | DX: Z20.822 Contact with and (suspected) exposure to COVID-19 (principal) ==

== ENCOUNTER → 2020-08-02 | Outpatient (REF) | payer MEDICARE, OTHER ==
[2020-08-02 18:32] LABS: CALCIUM LEVEL 9.7 MG/DL (8.8-10.2)
[2020-08-02 18:50] LABS: TOTAL 25(OH) VITAMIN D 75.3 NG/ML (30.0-100.0)
== END ==
LOC: M LABDRWAD 16:49 → M LAB REF 16:49
PROVIDERS: ATTEND Internal Medicine Endocrinology, Diabetes & Metabolism
DX: M81.0 Age-related osteoporosis without current pathological fracture (principal)

== ENCOUNTER → 2020-11-07 | Outpatient (CLI) | payer MEDICARE, OTHER ==
--- NOTE | 2020-11-07 13:18 | DEXAMM ---
INDICATION: AGE REL OSTEOPOROSIS W/O FX. COMPARISON: 10/20/2018 as well as other prior exams. TECHNIQUE: Bone density was measured using dual-energy x-ray absorptiometry (DEXA). FINDINGS: AP SPINE L1-L4 BMD 0.962 g/cm2 Young Adult T-Score -1.9 Age Matched Z-Score -0.2. LT FEMUR, TOTAL BMD 0.729 g/cm2 Young Adult T-Score -2.2 Age Matched Z-Score -0.7. LT NECK BMD 0.704 g/cm2 Young Adult T-Score -2.4 Age Matched Z-Score -0.7. RT FEMUR, TOTAL BMD 0.828 g/cm2 Young Adult T-Score -1.4 Age Matched Z-Score 0.1. RT NECK BMD 0.737 g/cm2 Young Adult T-Score -2.2 Age Matched Z-Score -0.5. IMPRESSION: There is low bone density of the spine. There is low bone density of the left hip. There is low bone density of the right hip. The density of the spine has increased 4.6% since the initial exam on 04/27/2003. The density of the spine decreased 4.5% since most recent exam on 10/20/2018. The density of the left hip has decreased 2.7% since initial exam on 04/27/2003. The density of the left hip has decreased 3.7% since most recent exam on 10/20/2018. The density of the right hip has increased 0.5% since the initial exam on 04/27/2003. The density of the right hip has decreased 1.0% since the most recent exam on 10/20/2018. FOLLOW-UP: Recommendation for the next bone density exam: 2 years. <Electronically signed by Hakan Serrano > 11/07/20 [id number]
== END ==
LOC: M WHC 10:59
PROVIDERS: ATTEND Internal Medicine Endocrinology, Diabetes & Metabolism
DX: M85.89 Other specified disorders of bone density and structure, multiple sites (principal)

== ENCOUNTER → 2021-02-06 | Outpatient (REF) | payer MEDICARE, OTHER ==
[~2021-02-06] MED LIST changes: +OMEP40CA4 PO; -OMEP40CA97 PO
== END ==
LOC: M LABDRWAD 16:40
PROVIDERS: ATTEND Nurse Practitioner Family
DX: M81.0 Age-related osteoporosis without current pathological fracture (principal)

== ENCOUNTER → 2021-02-27 | Outpatient (REF) | payer MEDICARE, OTHER ==
[2021-02-27 13:26] LABS: ALBUMIN 3.7 GM/DL (3.2-5.2); ALT/SGPT 74 U/L (12-78); BILIRUBIN,TOTAL 0.4 MG/DL (0.2-1.0); BLOOD UREA NITROGEN 20 MG/DL (7-18); CALCIUM LEVEL 8.9 MG/DL (8.8-10.2); CARBON DIOXIDE LEVEL 29 MEQ/L (21-32); CHLORIDE LEVEL 109 MEQ/L (98-107); CHOLESTEROL LEVEL 185 MG/DL (<200); CHOLESTEROL RISK RATIO 2.256 (<5); CREATININE FOR GFR 0.87 MG/DL (0.55-1.30); FERRITIN 12 NG/ML (8-252); FREE T4 0.74 NG/DL (0.76-1.46); GLOMERULAR FILTRATION RATE > 60.0 (>39); GLUCOSE, FASTING 84 MG/DL (70-100); HDL CHOLESTEROL 82 MG/DL (>40); HEPATITIS B SURFACE ANTIBODY POSITIVE (POSITIVE); LDL CHOLESTEROL 84 MG/DL (<100); NON-HDL-C 103 MG/DL; POTASSIUM SERUM 4.2 MEQ/L (3.5-5.1); SODIUM LEVEL 142 MEQ/L (136-145); TOTAL PROTEIN 6.7 GM/DL (6.4-8.2); TRIGLYCERIDES LEVEL 96 MG/DL (<150)
[2021-02-27 13:34] LABS: HEPATITIS B SURFACE ANTIGEN NEGATIVE (NEGATIVE)
[2021-02-27 14:02] LABS: HEPATITIS B CORE ANTIBODY IGM NEGATIVE (NEGATIVE); HEPATITIS C VIRUS ABY INDEX 0.1 INDEX (<0.8)
[2021-02-28 20:09] LABS: ANA (HEP2) Negative (.); ANTI-MITOCHONDRIAL ANTIBODY <20.0 Units (0.0-20.0)
== END ==
LOC: M SFHCADAM 09:57
PROVIDERS: ATTEND Family Medicine
DX: R74.8 Abnormal levels of other serum enzymes (principal); E78.5 Hyperlipidemia, unspecified; Z79.899 Other long term (current) drug therapy

== ENCOUNTER → 2021-03-12 | Outpatient (REF) | payer MEDICARE, OTHER ==
[2021-03-12 20:20] LABS: APPEARANCE, URINE CLOUDY (CLEAR); BACTERIA, URINE AUTO NEGATIVE (NEGATIVE); BILIRUBIN, URINE AUTO NEGATIVE (NEGATIVE); BLOOD, URINE BLOOD NEGATIVE (NEGATIVE); COLOR, URINE YELLOW (YELLOW); GLUCOSE, URINE (UA) AUTO NEGATIVE (NEGATIVE); KETONE, URINE AUTO NEGATIVE (NEGATIVE); LEUKOCYTE ESTERASE, URINE AUTO 3+ (NEGATIVE); MUCUS, URINE SMALL (NEGATIVE); NITRITE, URINE AUTO POSITIVE (NEGATIVE); PROTEIN, URINE AUTO 1+ mg/dL (NEGATIVE); RBC, URINE AUTO 5 /HPF (0-3); SPECIFIC GRAVITY URINE AUTO 1.021 (1.002-1.035); SQUAMOUS EPITHELIAL CELL UR AU 1 /HPF (0-6); TRANSITIONAL EPITHELIAL AUTO <1 /HPF; UROBILINOGEN, URINE AUTO 0.2 mg/dL (0.0-2.0); WBC, URINE AUTO TNTC /HPF (0-3)
== END ==
LOC: M LAB REF 19:29
PROVIDERS: ATTEND Physician Assistant Medical
DX: R30.0 Dysuria (principal)

== ENCOUNTER → 2021-03-21 | Outpatient (REF) | payer MEDICARE, OTHER ==
[2021-03-21 12:28] LABS: APPEARANCE, URINE HAZY (CLEAR); BACTERIA, URINE AUTO NEGATIVE (NEGATIVE); BILIRUBIN, URINE AUTO NEGATIVE (NEGATIVE); BLOOD, URINE BLOOD NEGATIVE (NEGATIVE); COLOR, URINE YELLOW (YELLOW); GLUCOSE, URINE (UA) AUTO NEGATIVE (NEGATIVE); KETONE, URINE AUTO NEGATIVE (NEGATIVE); LEUKOCYTE ESTERASE, URINE AUTO NEGATIVE (NEGATIVE); MUCUS, URINE SMALL (NEGATIVE); NITRITE, URINE AUTO NEGATIVE (NEGATIVE); PROTEIN, URINE AUTO NEGATIVE (NEGATIVE); RBC, URINE AUTO 1 /HPF (0-3); SPECIFIC GRAVITY URINE AUTO 1.016 (1.002-1.035); SQUAMOUS EPITHELIAL CELL UR AU 0 /HPF (0-6); UROBILINOGEN, URINE AUTO 0.2 mg/dL (0.0-2.0); WBC, URINE AUTO 0 /HPF (0-3)
== END ==
LOC: M SMT 11:51
PROVIDERS: ATTEND Nurse Practitioner Women's Health
DX: N39.0 Urinary tract infection, site not specified (principal)

== ENCOUNTER → 2021-05-18 | Outpatient (REF) | payer MEDICARE, OTHER | LOC: M LAB REF 16:44 → M LABDRWAD 16:44 | PROVIDERS: ATTEND Nurse Practitioner Family | DX: M81.0 Age-related osteoporosis without current pathological fracture (principal) ==

== ENCOUNTER → 2021-06-26 | Outpatient (CLI) | payer MEDICARE, OTHER | LOC: M WHC 13:54 | PROVIDERS: ATTEND Nurse Practitioner Women's Health | DX: Z12.31 Encounter for screening mammogram for malignant neoplasm of breast (principal); Z78.0 Asymptomatic menopausal state; Z98.890 Other specified postprocedural states; Z92.23 Personal history of estrogen therapy; R92.1 Mammographic calcification found on diagnostic imaging of breast | CPT/HCPCS: 77063; 77067; G0463 ==

== ENCOUNTER → 2021-08-09 | Outpatient (REF) | payer MEDICARE, OTHER ==
[2021-08-09 14:06] LABS: CALCIUM LEVEL 9.1 MG/DL (8.8-10.2)
== END ==
LOC: M LABDRWAD 12:12
PROVIDERS: ATTEND Nurse Practitioner Family
DX: M81.0 Age-related osteoporosis without current pathological fracture (principal)

== ENCOUNTER → 2021-08-17 | Outpatient (REF) | payer MEDICARE, OTHER ==
[2021-08-18 17:29] LABS: APPEARANCE, URINE CLOUDY (CLEAR); BACTERIA, URINE AUTO NEGATIVE (NEGATIVE); BILIRUBIN, URINE AUTO NEGATIVE (NEGATIVE); BLOOD, URINE BLOOD NEGATIVE (NEGATIVE); CALCIUM OXALATE CRYSTALS LARGE; COLOR, URINE AMBER (YELLOW); GLUCOSE, URINE (UA) AUTO NEGATIVE (NEGATIVE); KETONE, URINE AUTO TRACE mg/dL (NEGATIVE); LEUKOCYTE ESTERASE, URINE AUTO NEGATIVE (NEGATIVE); MUCUS, URINE SMALL (NEGATIVE); NITRITE, URINE AUTO NEGATIVE (NEGATIVE); PROTEIN, URINE AUTO 1+ mg/dL (NEGATIVE); RBC, URINE AUTO 0 /HPF (0-3); SPECIFIC GRAVITY URINE AUTO 1.027 (1.002-1.035); SQUAMOUS EPITHELIAL CELL UR AU 3 /HPF (0-6); WBC, URINE AUTO 1 /HPF (0-3)
== END ==
LOC: M LAB REF 16:35
PROVIDERS: ATTEND Physician Assistant
DX: N39.0 Urinary tract infection, site not specified (principal)

== ENCOUNTER → 2021-09-12 | Outpatient (CLI) | payer MEDICARE, OTHER | LOC: M EKG 11:29 | PROVIDERS: ATTEND Family Medicine | DX: R00.2 Palpitations (principal) ==

== ENCOUNTER → 2022-02-08 | Outpatient (CLI) | payer MEDICARE, OTHER | LOC: M ADAMS 10:36 | PROVIDERS: ATTEND Internal Medicine Endocrinology, Diabetes & Metabolism | DX: M81.0 Age-related osteoporosis without current pathological fracture (principal) ==

== ENCOUNTER → 2022-03-01 | Outpatient (REF) | payer MEDICARE, OTHER ==
[2022-03-02 13:20] LABS: HEMATOCRIT 43.7 % (36.0-47.0); HEMOGLOBIN 14.2 g/dl (12.0-15.5); MEAN CORPUSCULAR HEMOGLOBIN 27.5 pg (27.0-33.0); MEAN CORPUSCULAR HGB CONC 32.5 g/dl (32.0-36.5); MEAN CORPUSCULAR VOLUME 84.5 fl (80.0-96.0); PLATELET COUNT, AUTOMATED 252 10^3/uL (150-450); RED BLOOD COUNT 5.17 10^6/uL (4.00-5.40); WHITE BLOOD COUNT 5.6 10^3/uL (4.0-10.0)
[2022-03-02 13:44] LABS: APPEARANCE, URINE MANUAL CLEAR (CLEAR); BILIRUBIN, URINE MANUAL NEGATIVE (NEGATIVE); BLOOD URINE MANUAL NEGATIVE (NEGATIVE); COLOR, URINE MANUAL YELLOW (YELLOW); GLUCOSE, URINE (UA) MANUAL NEGATIVE (NEGATIVE); KETONE, URINE MANUAL NEGATIVE (NEGATIVE); NITRITE, URINE MANUAL NEGATIVE (NEGATIVE); PROTEIN, URINE MANUAL NEGATIVE (NEGATIVE); UROBILINOGEN, URINE MANUAL NORMAL (NORMAL)
[2022-03-02 13:45] LABS: LEUKOCYTE ESTERASE, URINE MAN TRACE (NEGATIVE)
[2022-03-02 14:16] LABS: ALBUMIN 3.8 GM/DL (3.2-5.2); ALT/SGPT 35 U/L (12-78); BILIRUBIN,TOTAL 0.3 MG/DL (0.2-1.0); BLOOD UREA NITROGEN 21 MG/DL (7-18); CALCIUM LEVEL 9.4 MG/DL (8.8-10.2); CARBON DIOXIDE LEVEL 26 MEQ/L (21-32); CHLORIDE LEVEL 107 MEQ/L (98-107); CHOLESTEROL LEVEL 186 MG/DL (<200); CHOLESTEROL RISK RATIO 2.214 (<5); CREATININE FOR GFR 0.92 MG/DL (0.55-1.30); GLOMERULAR FILTRATION RATE > 60.0 (>39); GLUCOSE, FASTING 104 MG/DL (70-100); HDL CHOLESTEROL 84 MG/DL (>40); LDL CHOLESTEROL 80 MG/DL (<100); NON-HDL-C 102 MG/DL; SODIUM LEVEL 138 MEQ/L (136-145); TRIGLYCERIDES LEVEL 111 MG/DL (<150)
[2022-03-02 14:20] LABS: BACTERIA, URINE NONE SEEN; CALCIUM OXALATE CRYSTALS,URINE LARGE AMOUNT /hpf; HYALINE CAST, URINE NONE SEEN /lpf (0-1); RBC, URINE 0-1 /hpf (0-3); SQUAMOUS EPITHELIAL CELL URINE SMALL AMOUNT /hpf (SMALL AMT)
[2022-03-02 14:21] LABS: RENAL EPITHELIAL CELLS, URINE SMALL AMOUNT /hpf
[2022-03-02 14:45] LABS: POTASSIUM SERUM 6.3 MEQ/L (3.5-5.1)
[2022-03-02 14:51] LABS: TOTAL 25(OH) VITAMIN D 62.4 NG/ML (30.0-100.0)
== END ==
LOC: M SFHCADAM 15:06
PROVIDERS: ATTEND Family Medicine
DX: M80.80XA Other osteoporosis with current pathological fracture, unspecified site, initial encounter for fracture (principal); N39.41 Urge incontinence; G43.909 Migraine, unspecified, not intractable, without status migrainosus; E78.5 Hyperlipidemia, unspecified

== ENCOUNTER → 2022-03-02 | Outpatient (CLI) | payer MEDICARE, OTHER | LOC: M PLALAB 15:29 | PROVIDERS: ATTEND Family Medicine | DX: E78.5 Hyperlipidemia, unspecified (principal) ==

== ENCOUNTER → 2022-06-28 | Outpatient (CLI) | payer MEDICARE, OTHER | LOC: M WHC 10:35 | PROVIDERS: ATTEND Obstetrics & Gynecology | DX: Z12.31 Encounter for screening mammogram for malignant neoplasm of breast (principal) ==

== ENCOUNTER → 2022-08-14 | Outpatient (REF) | payer MEDICARE, OTHER ==
[2022-08-14 16:56] LABS: CALCIUM LEVEL 9.4 MG/DL (8.3-10.6)
[2022-08-14 17:01] LABS: TOTAL 25(OH) VITAMIN D 64.5 NG/ML (20.0-100.0)
== END ==
LOC: M LABDRWAD 15:57
PROVIDERS: ATTEND Nurse Practitioner Family
DX: M81.0 Age-related osteoporosis without current pathological fracture (principal); E55.9 Vitamin D deficiency, unspecified

== ENCOUNTER → 2022-10-02 | Outpatient (CLI) | payer MEDICARE, OTHER | LOC: M SOG 11:19 | PROVIDERS: ATTEND Physician Assistant | DX: M79.644 Pain in right finger(s) (principal) ==

== ENCOUNTER → 2022-10-24 | Outpatient (REF) | payer MEDICARE, OTHER ==
[~2022-10-24] MED LIST changes: +AMBERIN; +BENA25CA4 PO; +CVS1CAP2 PO; +GNP1000C11 PO; +KLON0.5T PO; +MELA3TAB44 PO; +MELO15TA28 PO; +MIRA3350 PO; +PRES10CA2 PO; +PROL60SO SC; +[UNRECOGNIZED DRUG - OTHER]; +augmentin PO
== END ==
LOC: M SFHCADAM 12:21
PROVIDERS: ATTEND Family Medicine
DX: R05.9 Cough, unspecified (principal)

== ENCOUNTER → 2022-10-29 | Day surgery (SDC) | payer MEDICARE, OTHER ==
[~2022-10-29] VITALS: Ht 157.5 cm; Wt 62.1 kg
[~2022-10-29] MED LIST changes: +BACITRACIN OINTMENT 30GM TUBE As Ordered ONE; +BETAMETHASONE SOLUSPAN 6MG/ML 5ML VIAL As Ordered ONE; +BETAMETHASONE SOLUSPAN 6MG/ML 5ML VIAL XX ONE; +LIDOCAINE 1% MDV 20ML VIAL As Ordered ONE; +LIDOCAINE 1% MDV 20ML VIAL XX ONE; +LIDOCAINE W/EPINEPHRINE 1% 20ML VIAL As Ordered ONE; +LIDOCAINE W/EPINEPHRINE 1% 20ML VIAL ID ONE; +SODIUM BICARBONATE 8.4% INJ 50MEQ 50ML VIAL As Ordered ONE; +SODIUM BICARBONATE 8.4% INJ 50MEQ 50ML VIAL ID ONE
[2022-10-29 06:10] VITALS: BP 160/77
== END | disposition home or self-care (01) ==
LOC: M SDC 06:02
PROVIDERS: ATTEND Orthopaedic Surgery Hand Surgery
DX: M65.311 Trigger thumb, right thumb (principal); Z53.8 Procedure and treatment not carried out for other reasons; M65.4 Radial styloid tenosynovitis [de Quervain]
CPT/HCPCS: 26055; 96372; J0702

== ENCOUNTER → 2022-11-06 | Outpatient (REF) | payer MEDICARE, OTHER ==
[~2022-11-06] MED LIST changes: -BACITRACIN OINTMENT 30GM TUBE As Ordered ONE; -BETAMETHASONE SOLUSPAN 6MG/ML 5ML VIAL As Ordered ONE; -BETAMETHASONE SOLUSPAN 6MG/ML 5ML VIAL XX ONE; -LIDOCAINE 1% MDV 20ML VIAL As Ordered ONE; -LIDOCAINE 1% MDV 20ML VIAL XX ONE; -LIDOCAINE W/EPINEPHRINE 1% 20ML VIAL As Ordered ONE; -LIDOCAINE W/EPINEPHRINE 1% 20ML VIAL ID ONE; -SODIUM BICARBONATE 8.4% INJ 50MEQ 50ML VIAL As Ordered ONE; -SODIUM BICARBONATE 8.4% INJ 50MEQ 50ML VIAL ID ONE
== END ==
LOC: M SFHCADAM 15:57
PROVIDERS: ATTEND Physician Assistant Medical
DX: J02.9 Acute pharyngitis, unspecified (principal)

== ENCOUNTER → 2022-11-16 | Outpatient (CLI) | payer MEDICARE, OTHER | LOC: M WHC 11-09 12:45 | PROVIDERS: ATTEND Internal Medicine Endocrinology, Diabetes & Metabolism | DX: M81.0 Age-related osteoporosis without current pathological fracture (principal); M85.89 Other specified disorders of bone density and structure, multiple sites ==

== ENCOUNTER → 2022-12-27 | Outpatient (REF) | payer MEDICARE, OTHER ==
[2022-12-28 13:09] LABS: MEAN CORPUSCULAR HEMOGLOBIN 27.4 pg (27.0-33.0); MEAN CORPUSCULAR HGB CONC 31.9 g/dl (32.0-36.5); MEAN CORPUSCULAR VOLUME 85.8 fl (80.0-96.0); PLATELET COUNT, AUTOMATED 266 10^3/uL (150-450); RED BLOOD COUNT 5.48 10^6/uL (4.00-5.40)
[2022-12-28 13:15] LABS: ALBUMIN 4.4 G/DL (3.2-5.2); ALKALINE PHOSPHATASE 96 U/L (46-116); ALT/SGPT 54 U/L (7.0-40); AST/SGOT 38 U/L (<34); BILIRUBIN,TOTAL 0.7 MG/DL (0.3-1.2); BLOOD UREA NITROGEN 21 MG/DL (9-23); CALCIUM LEVEL 10.4 MG/DL (8.3-10.6); CARBON DIOXIDE LEVEL 30 MMOL/L (20-31); CHLORIDE LEVEL 102 MMOL/L (98-107); CHOLESTEROL LEVEL 183 MG/DL (<200); CHOLESTEROL RISK RATIO 2.32 (<5); CREATININE FOR GFR 0.82 MG/DL (0.55-1.30); GLOMERULAR FILTRATION RATE > 60.0 (>39); GLUCOSE, FASTING 120 MG/DL (74-106); HDL CHOLESTEROL 78.8 MG/DL (>40); LDL CHOLESTEROL 77.6 MG/DL (<100); NON-HDL-C 104.2 MG/DL; POTASSIUM SERUM 4.4 MMOL/L (3.5-5.1); SODIUM LEVEL 140 MMOL/L (136-145); TOTAL PROTEIN 7.2 G/DL (5.7-8.2); TRIGLYCERIDES LEVEL 133 MG/DL (<150)
[2022-12-28 13:17] LABS: FREE T4 0.93 NG/DL (0.89-1.76)
[2022-12-28 13:39] LABS: HEMOGLOBIN A1c 5.4 % (4.0-6.0)
[2022-12-31 10:19] LABS: APPEARANCE, URINE HAZY (CLEAR); BILIRUBIN, URINE AUTO NEGATIVE (NEGATIVE); BLOOD, URINE BLOOD NEGATIVE (NEGATIVE); COLOR, URINE AMBER (YELLOW); GLUCOSE, URINE (UA) AUTO NEGATIVE (NEGATIVE); KETONE, URINE AUTO NEGATIVE (NEGATIVE); LEUKOCYTE ESTERASE, URINE AUTO NEGATIVE (NEGATIVE); NITRITE, URINE AUTO NEGATIVE (NEGATIVE); PROTEIN, URINE AUTO NEGATIVE (NEGATIVE); RBC, URINE AUTO 0 /HPF (0-3); SPECIFIC GRAVITY URINE AUTO 1.023 (1.002-1.035); WBC, URINE AUTO 1 /HPF (0-3)
[2022-12-31 10:20] LABS: BACTERIA, URINE AUTO NEGATIVE (NEGATIVE); MUCUS, URINE SMALL (NEGATIVE)
== END ==
LOC: M SFHCADAM 14:43
PROVIDERS: ATTEND Family Medicine
DX: N39.41 Urge incontinence (principal); N39.0 Urinary tract infection, site not specified; E78.5 Hyperlipidemia, unspecified; Z13.1 Encounter for screening for diabetes mellitus; Z79.899 Other long term (current) drug therapy

== ENCOUNTER 2023-01-02 06:56 | Day surgery (SDC) | payer MEDICARE, OTHER ==
[~2023-01-02] VITALS: Ht 157.5 cm; Wt 61.9 kg
[2023-01-02] MEDS ORDERED: LIDOCAINE W/EPINEPHRINE 1% 20ML VIAL ID ONE (07:35)
[2023-01-02] MEDS ORDERED: SODIUM BICARBONATE 8.4% INJ 50MEQ 50ML VIAL ID ONE (07:35)
[2023-01-02] MEDS ORDERED: BACITRACIN OINTMENT 30GM TUBE As Ordered ONE (09:09)
[2023-01-02 09:55] VITALS: BP 139/74; TEMP 98.1; O2SAT 100
== END 2023-01-02 11:31 | disposition home or self-care (01) ==
LOC: M SDC 06:56
PROVIDERS: ATTEND Orthopaedic Surgery Hand Surgery
DX: M65.311 Trigger thumb, right thumb (principal); M65.4 Radial styloid tenosynovitis [de Quervain]; E78.00 Pure hypercholesterolemia, unspecified; K21.9 Gastro-esophageal reflux disease without esophagitis; M85.80 Other specified disorders of bone density and structure, unspecified site; F41.9 Anxiety disorder, unspecified; F32.A Depression, unspecified; G43.909 Migraine, unspecified, not intractable, without status migrainosus; M54.81 Occipital neuralgia; Z91.048 Other nonmedicinal substance allergy status; Z91.041 Radiographic dye allergy status; Z88.2 Allergy status to sulfonamides; Z88.8 Allergy status to other drugs, medicaments and biological substances; Z79.899 Other long term (current) drug therapy; Z79.1 Long term (current) use of non-steroidal anti-inflammatories (NSAID)

== ENCOUNTER → 2023-01-12 | Outpatient (REF) | payer MEDICARE, OTHER | LOC: M WUC 18:08 | PROVIDERS: ATTEND Student in an Organized Health Care Education/Training Program | DX: R30.0 Dysuria (principal) ==

== ENCOUNTER → 2023-02-11 | Outpatient (CLI) | payer MEDICARE, OTHER ==
[2023-02-11 18:15] LABS: BASO % 0.2 % (0.0-1.0); HEMATOCRIT 46.8 % (36.0-47.0); HEMOGLOBIN 14.7 g/dl (12.0-15.5); LYMPH % 7.9 % (24.0-44.0); MEAN CORPUSCULAR HEMOGLOBIN 27.6 pg (27.0-33.0); MEAN CORPUSCULAR HGB CONC 31.4 g/dl (32.0-36.5); MEAN CORPUSCULAR VOLUME 87.8 fl (80.0-96.0); MONO # 1.1 10^3/uL (0.0-0.8); MONO % 9.1 % (2.0-8.0); NEUTROPHILS # 10.1 10^3/uL (1.5-8.5); NEUTROPHILS % 82.3 % (36.0-66.0); PLATELET COUNT, AUTOMATED 237 10^3/uL (150-450); RED BLOOD COUNT 5.33 10^6/uL (4.00-5.40); WHITE BLOOD COUNT 12.2 10^3/uL (4.0-10.0)
[2023-02-11 18:19] LABS: BLOOD UREA NITROGEN 14 MG/DL (9-23); CALCIUM LEVEL 9.1 MG/DL (8.3-10.6); CARBON DIOXIDE LEVEL 24 MMOL/L (20-31); CHLORIDE LEVEL 105 MMOL/L (98-107); CREATININE FOR GFR 0.67 MG/DL (0.55-1.30); GLOMERULAR FILTRATION RATE > 60.0 (>39); GLUCOSE, FASTING 79 MG/DL (74-106); POTASSIUM SERUM 4.4 MMOL/L (3.5-5.1); SODIUM LEVEL 142 MMOL/L (136-145)
== END ==
LOC: M PLALAB 14:57
PROVIDERS: ATTEND Student in an Organized Health Care Education/Training Program
DX: N34.2 Other urethritis (principal)

== ENCOUNTER → 2023-02-11 | Outpatient (REF) | payer MEDICARE, OTHER | LOC: M SFHCPLAZ 14:48 | PROVIDERS: ATTEND Family Medicine | DX: N34.2 Other urethritis (principal) ==

== ENCOUNTER → 2023-02-27 | Outpatient (REF) | payer MEDICARE, OTHER | LOC: M SFHCADAM 10:27 | PROVIDERS: ATTEND Family Medicine | DX: N39.0 Urinary tract infection, site not specified (principal) ==

== ENCOUNTER → 2023-04-29 | Outpatient (CLI) | payer MEDICARE, OTHER ==
[~2023-04-29] MED LIST changes: -LUNE3TAB36 PO; +LUNE3TAB50 PO
== END ==
LOC: M PLAIMG 13:22
DX: G58.8 Other specified mononeuropathies (principal); G89.29 Other chronic pain; R10.2 Pelvic and perineal pain; R20.2 Paresthesia of skin

== ENCOUNTER → 2023-06-12 | Outpatient (REF) | payer MEDICARE, OTHER ==
[2023-06-12 17:52] LABS: ALBUMIN 3.9 G/DL (3.2-5.2); BILIRUBIN,DIRECT 0.2 MG/DL (<0.4); BILIRUBIN,TOTAL 0.6 MG/DL (0.3-1.2); TOTAL PROTEIN 6.6 G/DL (5.7-8.2)
== END ==
LOC: M SFHCADAM 14:57
PROVIDERS: ATTEND Family Medicine
DX: Z51.81 Encounter for therapeutic drug level monitoring (principal)

== ENCOUNTER → 2023-08-19 | Outpatient (REF) | payer MEDICARE, OTHER ==
[2023-08-19 14:04] LABS: CALCIUM LEVEL 9.2 MG/DL (8.3-10.6)
[2023-08-19 14:08] LABS: TOTAL 25(OH) VITAMIN D 58.5 NG/ML (20.0-100.0)
== END ==
LOC: M LABDRWAD 12:36
PROVIDERS: ATTEND Nurse Practitioner Family
DX: M81.0 Age-related osteoporosis without current pathological fracture (principal); E55.9 Vitamin D deficiency, unspecified

== ENCOUNTER → 2023-09-09 | Outpatient (CLI) | payer MEDICARE, OTHER ==
[~2023-09-09] MED LIST changes: -KLON0.5T PO; +KLON0.5T8 PO
== END ==
LOC: M WHC 13:02
PROVIDERS: ATTEND Obstetrics & Gynecology
DX: Z12.31 Encounter for screening mammogram for malignant neoplasm of breast (principal)

== ENCOUNTER → 2023-11-21 | Outpatient (CLI) | payer MEDICARE, OTHER | LOC: M PLAIMG 12:33 | PROVIDERS: ATTEND Pain Medicine Interventional Pain Medicine | DX: M96.1 Postlaminectomy syndrome, not elsewhere classified (principal); M51.36 Other intervertebral disc degeneration, lumbar region; M48.061 Spinal stenosis, lumbar region without neurogenic claudication; M99.63 Osseous and subluxation stenosis of intervertebral foramina of lumbar region ==

== ENCOUNTER → 2023-12-20 | Outpatient (CLI) | payer MEDICARE, OTHER | LOC: M PLARAD 09:51 | PROVIDERS: ATTEND Pain Medicine Interventional Pain Medicine | DX: M96.1 Postlaminectomy syndrome, not elsewhere classified (principal) ==

== ENCOUNTER → 2024-01-06 | Outpatient (CLI) | payer MEDICARE, OTHER ==
[2024-01-06 12:44] LABS: HEMATOCRIT 41.5 % (36.0-47.0); HEMOGLOBIN 13.3 g/dl (12.0-15.5); MEAN CORPUSCULAR HEMOGLOBIN 27.5 pg (27.0-33.0); MEAN CORPUSCULAR VOLUME 85.9 fl (80.0-96.0); PLATELET COUNT, AUTOMATED 217 10^3/uL (150-450); RED BLOOD COUNT 4.83 10^6/uL (4.00-5.40)
[2024-01-06 12:52] LABS: ALBUMIN 3.6 G/DL (3.2-5.2); ALKALINE PHOSPHATASE 82 U/L (46-116); ALT/SGPT 46 U/L (7.0-40); AST/SGOT 40 U/L (<34); BILIRUBIN,TOTAL 0.6 MG/DL (0.3-1.2); BLOOD UREA NITROGEN 26 MG/DL (9-23); CALCIUM LEVEL 8.9 MG/DL (8.3-10.6); CARBON DIOXIDE LEVEL 28 MMOL/L (20-31); CHLORIDE LEVEL 107 MMOL/L (98-107); CHOLESTEROL LEVEL 189 MG/DL (<200); CHOLESTEROL RISK RATIO 2.45 (<5); CREATININE FOR GFR 0.83 MG/DL (0.55-1.30); FREE T4 0.99 NG/DL (0.89-1.76); GLOMERULAR FILTRATION RATE > 60.0 (>39); GLUCOSE, FASTING 80 MG/DL (74-106); LDL CHOLESTEROL 97.2 MG/DL (<100); POTASSIUM SERUM 4.1 MMOL/L (3.5-5.1); SODIUM LEVEL 139 MMOL/L (136-145); THYROID STIMULATING HORMONE 1.737 uIU/ML (0.55-4.78); TOTAL 25(OH) VITAMIN D 57.6 NG/ML (20.0-100.0); TOTAL PROTEIN 6.1 G/DL (5.7-8.2); TRIGLYCERIDES LEVEL 74 MG/DL (<150)
== END ==
LOC: M PLALAB 09:38
PROVIDERS: ATTEND Family Medicine
DX: R74.8 Abnormal levels of other serum enzymes (principal); Z79.899 Other long term (current) drug therapy

== ENCOUNTER → 2024-02-05 | Outpatient (CLI) | payer MEDICARE, OTHER | LOC: M RAD 07:44 | PROVIDERS: ATTEND Family Medicine | DX: R74.8 Abnormal levels of other serum enzymes (principal) ==

== ENCOUNTER → 2024-02-21 | Outpatient (CLI) | payer MEDICARE, OTHER ==
[2024-02-21 16:16] LABS: CALCIUM LEVEL 10.1 MG/DL (8.3-10.6)
== END ==
LOC: M PLALAB 12:28
PROVIDERS: ATTEND Internal Medicine Endocrinology, Diabetes & Metabolism
DX: M81.0 Age-related osteoporosis without current pathological fracture (principal)

== ENCOUNTER → 2024-04-16 | Outpatient (REF) | payer MEDICARE, OTHER ==
[2024-04-16 17:00] LABS: HEMATOCRIT 45.5 % (36.0-47.0); HEMOGLOBIN 14.5 g/dl (12.0-15.5); MEAN CORPUSCULAR HEMOGLOBIN 27.9 pg (27.0-33.0); MEAN CORPUSCULAR HGB CONC 31.9 g/dl (32.0-36.5); MEAN CORPUSCULAR VOLUME 87.5 fl (80.0-96.0); PLATELET COUNT, AUTOMATED 242 10^3/uL (150-450); WHITE BLOOD COUNT 5.3 10^3/uL (4.0-10.0)
[2024-04-16 17:12] LABS: ALBUMIN 4.4 G/DL (3.2-5.2); ALKALINE PHOSPHATASE 96 U/L (46-116); ALT/SGPT 37 U/L (7.0-40); AST/SGOT 33 U/L (<34); BILIRUBIN,TOTAL 0.7 MG/DL (0.3-1.2); BLOOD UREA NITROGEN 17 MG/DL (9-23); CALCIUM LEVEL 10.2 MG/DL (8.3-10.6); CARBON DIOXIDE LEVEL 27 MMOL/L (20-31); CHLORIDE LEVEL 105 MMOL/L (98-107); CREATININE FOR GFR 0.84 MG/DL (0.55-1.30); GLOMERULAR FILTRATION RATE > 60.0 (>39); GLUCOSE, FASTING 90 MG/DL (74-106); POTASSIUM SERUM 4.3 MMOL/L (3.5-5.1); SODIUM LEVEL 139 MMOL/L (136-145); TOTAL PROTEIN 7.5 G/DL (5.7-8.2)
[2024-04-16 17:18] LABS: INR 1.07; PARTIAL THROMBOPLASTIN TIME 32.4 SECONDS (24.8-34.2); PROTHROMBIN TIME 13.6 SECONDS (12.5-14.5)
== END ==
LOC: M SFHCADAM 12:26
PROVIDERS: ATTEND Family Medicine
DX: Z01.818 Encounter for other preprocedural examination (principal)

== ENCOUNTER → 2024-07-28 | Outpatient (REF) | payer MEDICARE, OTHER ==
[2024-07-28 14:31] LABS: BASO % 0.2 % (0.0-1.0); EOS # 0.1 10^3/uL (0.0-0.5); EOS % 2.2 % (0.0-3.0); HEMATOCRIT 43.9 % (36.0-47.0); LYMPH # 2.3 10^3/uL (1.5-5.0); LYMPH % 36.4 % (24.0-44.0); MEAN CORPUSCULAR HEMOGLOBIN 27.3 pg (27.0-33.0); MEAN CORPUSCULAR HGB CONC 31.9 g/dl (32.0-36.5); MEAN CORPUSCULAR VOLUME 85.7 fl (80.0-96.0); MONO # 0.6 10^3/uL (0.0-0.8); NEUTROPHILS # 3.3 10^3/uL (1.5-8.5); NEUTROPHILS % 50.9 % (36.0-66.0); PLATELET COUNT, AUTOMATED 264 10^3/uL (150-450); RED BLOOD COUNT 5.12 10^6/uL (4.00-5.40); WHITE BLOOD COUNT 6.4 10^3/uL (4.0-10.0)
[2024-07-28 14:38] LABS: ALBUMIN 4.2 G/DL (3.2-5.2); ALKALINE PHOSPHATASE 93 U/L (35-104); ALT/SGPT 37 U/L (7.0-40); AST/SGOT 38 U/L (<34); BILIRUBIN,TOTAL 0.6 MG/DL (0.3-1.2); BLOOD UREA NITROGEN 16 MG/DL (9-23); CALCIUM LEVEL 9.5 MG/DL (8.3-10.6); CARBON DIOXIDE LEVEL 32 MMOL/L (20-31); CHLORIDE LEVEL 104 MMOL/L (98-107); CREATININE FOR GFR 0.83 MG/DL (0.55-1.30); GLOMERULAR FILTRATION RATE > 60.0 (>39); GLUCOSE, FASTING 85 MG/DL (74-106); POTASSIUM SERUM 4.2 MMOL/L (3.5-5.1); SODIUM LEVEL 142 MMOL/L (136-145); TOTAL PROTEIN 7.1 G/DL (5.7-8.2)
== END ==
LOC: M LABDRWAD 12:42
PROVIDERS: ATTEND Orthopaedic Surgery
DX: Z01.818 Encounter for other preprocedural examination (principal)

== ENCOUNTER → 2024-08-24 | Outpatient (REF) | payer MEDICARE, OTHER | LOC: M LABDRWAD 12:48 | PROVIDERS: ATTEND Nurse Practitioner Family | DX: M81.0 Age-related osteoporosis without current pathological fracture (principal) ==

== ENCOUNTER → 2024-09-30 | Outpatient (CLI) | payer MEDICARE, OTHER ==
[~2024-09-30] MED LIST changes: +DENO60SY2 SC; -PROL60SO SC
== END ==
LOC: M WHC 11:33
PROVIDERS: ATTEND Obstetrics & Gynecology
DX: Z12.31 Encounter for screening mammogram for malignant neoplasm of breast (principal); R92.313 Mammographic fatty tissue density, bilateral breasts

== ENCOUNTER → 2024-10-15 | Outpatient (REF) | payer MEDICARE, OTHER ==
[2024-10-15 18:34] LABS: HEMATOCRIT 41.3 % (36.0-47.0); HEMOGLOBIN 13.1 g/dl (12.0-15.5); MEAN CORPUSCULAR HEMOGLOBIN 27.2 pg (27.0-33.0); MEAN CORPUSCULAR HGB CONC 31.7 g/dl (32.0-36.5); MEAN CORPUSCULAR VOLUME 85.7 fl (80.0-96.0); PLATELET COUNT, AUTOMATED 235 10^3/uL (150-450); RED BLOOD COUNT 4.82 10^6/uL (4.00-5.40); WHITE BLOOD COUNT 5.2 10^3/uL (4.0-10.0)
[2024-10-15 18:58] LABS: ALBUMIN 3.8 G/DL (3.2-5.2); ALKALINE PHOSPHATASE 83 U/L (35-104); ALT/SGPT 27 U/L (7.0-40); AST/SGOT 26 U/L (<34); BILIRUBIN,TOTAL 0.5 MG/DL (0.3-1.2); BLOOD UREA NITROGEN 22 MG/DL (9-23); CALCIUM LEVEL 9.3 MG/DL (8.3-10.6); CARBON DIOXIDE LEVEL 25 MMOL/L (20-31); CHLORIDE LEVEL 108 MMOL/L (98-107); CHOLESTEROL LEVEL 184 MG/DL (<200); CREATININE FOR GFR 0.74 MG/DL (0.55-1.30); GLOMERULAR FILTRATION RATE > 60.0 (>39); GLUCOSE, FASTING 90 MG/DL (74-106); HDL CHOLESTEROL 79.8 MG/DL (>40); NON-HDL-C 104.2 MG/DL; POTASSIUM SERUM 4.3 MMOL/L (3.5-5.1); SODIUM LEVEL 143 MMOL/L (136-145); TOTAL PROTEIN 6.7 G/DL (5.7-8.2); TRIGLYCERIDES LEVEL 91 MG/DL (<150)
[2024-10-15 18:59] LABS: FREE T4 0.81 NG/DL (0.89-1.76); THYROID STIMULATING HORMONE 1.548 uIU/ML (0.55-4.78)
== END ==
LOC: M SFHCADAM 15:13
PROVIDERS: ATTEND Family Medicine
DX: R23.2 Flushing (principal); E78.5 Hyperlipidemia, unspecified

== ENCOUNTER → 2025-02-19 | Outpatient (REF) | payer MEDICARE, OTHER ==
[~2025-02-19] MED LIST changes: +OXYC-517 PO; -PREG50CA PO; +PREG50CA87 PO
[2025-02-19 18:12] LABS: ALT/SGPT 37.0 U/L (7.0-40); AST/SGOT 37.0 U/L (<34); CALCIUM LEVEL 9.9 MG/DL (8.3-10.6); CARBON DIOXIDE LEVEL 29.0 MMOL/L (20-31); CHLORIDE LEVEL 106.0 MMOL/L (98-107); CREATININE FOR GFR 0.92 MG/DL (0.55-1.30); GLOMERULAR FILTRATION RATE 65.3 (>39); POTASSIUM SERUM 4.5 MMOL/L (3.5-5.1); SODIUM LEVEL 146.0 MMOL/L (136-145)
== END ==
LOC: M SFHCADAM 11:14
PROVIDERS: ATTEND Family Medicine
DX: R23.2 Flushing (principal); K76.0 Fatty (change of) liver, not elsewhere classified

== ENCOUNTER → 2025-02-24 | Outpatient (CLI) | payer MEDICARE, OTHER | LOC: M PLAIMG 11:47 | DX: S99.912A Unspecified injury of left ankle, initial encounter (principal); W19.XXXA Unspecified fall, initial encounter; Y92.9 Unspecified place or not applicable; Y93.9 Activity, unspecified; Y99.9 Unspecified external cause status ==

== ENCOUNTER → 2025-03-30 | Outpatient (REF) | payer MEDICARE, OTHER ==
[2025-03-30 14:44] LABS: CALCIUM LEVEL 9.9 MG/DL (8.3-10.6); CARBON DIOXIDE LEVEL 27.0 MMOL/L (20-31); CHLORIDE LEVEL 107.0 MMOL/L (98-107); CREATININE FOR GFR 0.85 MG/DL (0.55-1.30); GLOMERULAR FILTRATION RATE 71.9 (>39); POTASSIUM SERUM 4.4 MMOL/L (3.5-5.1); SODIUM LEVEL 143.0 MMOL/L (136-145)
[2025-03-30 14:46] LABS: TOTAL 25(OH) VITAMIN D 46.8 NG/ML (20.0-100.0)
== END ==
LOC: M LABDRWAD 13:39
PROVIDERS: ATTEND Nurse Practitioner Family
DX: M81.0 Age-related osteoporosis without current pathological fracture (principal); E55.9 Vitamin D deficiency, unspecified